=== PATIENT | female | born 1945 | race Caucasian/White ===

== ENCOUNTER 2016-07-10 12:59 | Observation (INO) | payer OTHER ==
[2016-07-10 13:07] VITALS: RESP 16
[2016-07-10 13:41] LABS: % IMMATURE GRANULYOCYTES 0.4 % (0.0-1.1); ABSOLUTE IMMATURE GRANULOCYTES 0.05 10^3/uL (0.00-0.10); ADD DIFF? NO; ADD MORPH? NO; ADD SCAN? NO; ATYPICAL LYMPHOCYTE FLAG 0 (0-99); FRAGMENT RBC FLAG 0 (0-99); HEMATOCRIT 44.9 % (38.0-47.0); HEMOGLOBIN 14.8 g/dL (12.6-16.3); LEFT SHIFT FLG 0 (0-99); LIPEMIA HEMOLYSIS FLAG 80 (0-99); MEAN CELL HEMOGLOBIN 28.9 pg (27.9-34.1); MEAN CELL VOLUME 87.7 fL (81.5-99.8); MEAN PLATELET VOLUME 9.1 fL (8.7-11.7); PLATELET CLUMPS FLAG 0 (0-99); PLATELET COUNT 344 10^3/uL (150-400); RED BLOOD CELL COUNT 5.12 10^6/uL (4.18-5.33); RED CELL DISTRIBUTION WIDTH 13.4 % (11.5-15.2)
[2016-07-10 13:51] LABS: ANION GAP 15 mEq/L (8-16); CALCIUM 9.8 mg/dL (8.5-10.4); CARBON DIOXIDE 22 mEq/l (22-31); CHLORIDE 102 mEq/L (97-110); CREATININE 0.7 mg/dL (0.6-1.0); GLOMERULAR FILTRATION RATE > 60; GLUCOSE 99 mg/dL (70-100); POTASSIUM 4.4 mEq/L (3.5-5.2); SODIUM 139 mEq/L (134-144)
[2016-07-10 14:55] LABS: INR 0.92 (0.83-1.16); PROTIME(PATIENT) 12.3 SEC (12.0-15.0)
[2016-07-10 14:56] LABS: APTT 24.5 SEC (23.0-38.0)
--- NOTE | 2016-07-10 15:20 | EDPHY ---
H & P Stated Complaint: R leg purple, Groin pain since this am. Source: Patient - Personal History Current Tetanus/Diphtheria Vaccine: Unsure Current Tetanus Diphtheria and Acellular Pertussis (TDAP): Unsure - Medical/Surgical History Hx Asthma: No Hx Chronic Respiratory Disease: No Hx Diabetes: No Hx Cardiac Disease: No Hx Renal Disease: No Hx Cirrhosis: No Hx Alcoholism: No Hx HIV/AIDS: No Hx Splenectomy or Spleen Trauma: No Other PMH: Ankle fracture,RLS hypothyroid. - Social History Smoking Status: Never smoked Time Seen by Provider: 07/10/16 13:16 HPI/ROS: This is a 71-year-old female presenting to the emergency department ambulatory with steady gait. Patient complaining of right groin pain radiating to her calf onset last night, denies any trauma. Patient denies any traveling long distance via airplane or car, normal activities per patient. Denies any chest pain or shortness of breath REVIEW OF SYSTEMS: Constitutional: No fever chills, fatigue this morning Respiratory: No cough Cardiac: No chest pain Gastrointestinal: No abdominal pain no nausea no vomiting Musculoskeletal: Right femoral pain, right calf pain Skin: No rash Neurological: No headache or dizziness (Marylu Bangura) - Physical Exam Exam: CONSTITUTIONAL: patient appeared well nourished, non-ill appearing and normally developed. No acute distress. Vital signs as documented. HEENT: NCAT. PERRLA. NECK: Supple, FROM without pain RESP: Non-labored resp effort, airway patent, CTAB CARDIAC: RRR w/o murmur, bo. GI: Abd soft NTTP NEURO: AAOx3 EXTREMITIES: Right groin area tender to palpate, right calf tender to palpate FROM without pain or difficulty. Positive strong femoral pulses/popliteal/ pedal pulses SKIN: Warm and dry, right lower extremity mottling but warm to touch PSYCH: Normal affect, calm, no distress (Marylu Bangura) Constitutional: Initial Vital Signs Temperature (C) 36.7 C 07/10/16 13:03 Heart Rate 92 07/10/16 13:03 Respiratory Rate 16 07/10/16 13:03 Blood Pressure 131/100 H 07/10/16 13:03 O2 Sat (%) 98 07/10/16 13:03 O2 Delivery Mode Room Air Allergies/Adverse Reactions: Sulfa (Sulfonamide Antibiotics) Allergy (Severe, Verified 07/10/16 13:07) Hives Home Medications: Medication Instructions Recorded Estradiol [Vivelle-Dot 0.0375MG 0.0375 mg TD TuFr@0800 07/10/16 (*)] Gabapentin [Neurontin 100 MG (*)] 500 mg PO HS 07/10/16 Herbals/Supplements -Info Only 1 ea PO HS 07/10/16 [id number] Cream (Compounded) 1 norma TP QID PRN 07/10/16 Lansoprazole [Lansoprazole 15 mg] 15 mg PO DAILY 07/10/16 Levothyroxine [Synthroid 75 mcg 75 mcg PO DAILY06 07/10/16 (*)] Progesterone, Micronized 100 mg PO HS 07/10/16 [Progesterone] traZODone [traZODONE 50MG (*)] 175 mg PO HS 07/10/16 Medical Decision Making - Diagnostics Imaging: History: Pain and swelling. *Right leg groin pain radiating down Findings: Ultrasound venous duplex and Doppler imaging of the common femoral vein, femoral vein, popliteal vein, calf veins, greater saphenous vein origin, and contralateral common femoral vein demonstrates positive occlusive intraluminal thrombus involving the right common iliac vein and common femoral vein. There is slow flow in the right superficial femoral vein, popliteal vein and calf veins with normal compressibility. Left common femoral vein appears patent. Impression: Positive deep venous thrombosis right leg involving the right common iliac vein and right common femoral vein. Findings and recommendations discussed with Emergency Department physician, Marylu Bangura NP at 14 :29 hour, 07/10/2016. Final report concurs with initial preliminary interpretation. Dictated By: Raymond Danielson (Marylu Bangura) ED Course/Re-evaluation: Discussed plan of care with patient: CBC, CMP, PT/PTT, ultrasound of right lower extremity positive for DVT at iliac vein and femoral vein. Patient admitted patient agreed with plan (Marylu Bangura) Other Provider: I did personally examine this patient. There is no discoloration or swelling of her thigh leg. She states that her pain has improved since she has had elevated. She has strong pulses and normal sensation. Considering the extension of her DVT I curb sided medicine who referred to up-to-date and recommends admission. Will start the patient on Lovenox. (Igor Wellington) - Data Points Laboratory Results: Laboratory Results 07/10/16 13:30 07/10/16 13:30 07/10/16 07/10/16 07/10/16 13:30 13:30 13:30 WBC 11.97 10^3/uL H 10^3/uL (3.80-9.50) RBC 5.12 10^6/uL 10^6/uL (4.18-5.33) Hgb 14.8 g/dL g/dL (12.6-16.3) Hct 44.9 % % (38.0-47.0) MCV 87.7 fL fL (81.5-99.8) MCH 28.9 pg pg (27.9-34.1) MCHC 33.0 g/dL g/dL (32.4-36.7) RDW 13.4 % % (11.5-15.2) Plt Count 344 10^3/uL 10^3/uL (150-400) MPV 9.1 fL fL (8.7-11.7) Neut % (Auto) 78.3 % H % (39.3-74.2) Lymph % (Auto) 14.6 % L % (15.0-45.0) [place] % (Auto) 5.3 % % (4.5-13.0) Eos % (Auto) 0.8 % % (0.6-7.6) Baso % (Auto) 0.6 % % (0.3-1.7) Nucleat RBC Rel Count 0.0 % % (0.0-0.2) Absolute Neuts (auto) 9.37 10^3/uL H 10^3/uL (1.70-6.50) Absolute Lymphs (auto) 1.75 10^3/uL 10^3/uL (1.00-3.00) Absolute Monos (auto) 0.64 10^3/uL 10^3/uL (0.30-0.80) Absolute Eos (auto) 0.09 10^3/uL 10^3/uL (0.03-0.40) Absolute Basos (auto) 0.07 10^3/uL 10^3/uL (0.02-0.10) Absolute Nucleated RBC 0.00 10^3/uL 10^3/uL (0-0.01) Immature Gran % 0.4 % % (0.0-1.1) Immature Gran # 0.05 10^3/uL 10^3/uL (0.00-0.10) PT 12.3 SEC SEC (12.0-15.0) INR 0.92 (0.83-1.16) APTT 24.5 SEC SEC (23.0-38.0) Sodium 139 mEq/L mEq/L (134-144) Potassium 4.4 mEq/L mEq/L (3.5-5.2) Chloride 102 mEq/L mEq/L (97-110) Carbon Dioxide 22 mEq/l mEq/l (22-31) Anion Gap 15 mEq/L mEq/L (8-16) BUN 10 mg/dL mg/dL (7-23) Creatinine 0.7 mg/dL mg/dL (0.6-1.0) Estimated GFR > 60 Glucose 99 mg/dL mg/dL (70-100) Calcium 9.8 mg/dL mg/dL (8.5-10.4) Medications Given: Discontinued Medications Enoxaparin Sodium (Lovenox) 60 mg SC ONCE ONE Stop: 07/10/16 16:01 Last Admin: 07/10/16 16:02 Dose: 60 mg Departure - Departure Disposition: [facility] Inpatient Acute Clinical Impression: DVT (deep venous thrombosis) Qualifiers: DVT location: lower extremity Affected thrombotic vein of extremity: iliac Laterality: right Chronicity: acute Qualified Code(s): I82.421 - Acute embolism and thrombosis of right iliac vein Condition: Good
[2016-07-10] MEDS ORDERED: ONDANSETRON 4 MG/2 ML VIAL IVP PRN (15:57)
[2016-07-10] MEDS ORDERED: HYDROCODONE/APAP 5/325 TAB PO PRN (15:57)
[2016-07-10] MEDS ORDERED: ONDANSETRON DISINTEGRATING 4 MG TAB PO PRN (15:57)
[2016-07-10] MEDS ORDERED: ACETAMINOPHEN 325 MG TAB PO PRN (15:57)
[2016-07-10] MEDS ORDERED: ENOXAPARIN 60 MG/0.6 ML SYR SC ONE (16:00)
--- NOTE | 2016-07-10 16:21 | GHP ---
[f rep st] HISTORY AND PHYSICAL DATE OF ADMISSION: 07/10/2016 CHIEF COMPLAINT: Right leg swelling. HISTORY OF PRESENT ILLNESS: This is a 71-year-old female with no significant past medical history w hira has had sudden onset of right groin pain and then right swelling with some discoloration of her l eg that she noticed today. She denies any chest pain or shortness of breath. She has never had any blood clots before. No recent travel. She did have an ankle injury about a year and half ago on t hat same side, and has had some problems with neuropathy and does use a mobilizer on that right ankl e at times. She is also on hormone replacement therapy which she has been on for a very long time. She says she gets regular mammograms and is up to date with her colonoscopies. She denies any weig ht loss or any other symptoms that would suggest malignancy. REVIEW OF SYSTEMS: A 10-point review of systems was obtained and, other than stated above, was nega tive. PAST MEDICAL HISTORY: Neuropathy, hypothyroidism. MEDICATIONS: Reviewed. 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 FAMILY HISTORY: No family history of blood clots. PHYSICAL EXAM: VITAL SIGNS: Afebrile, blood pressure 124/75, heart rate 89, oxygen saturation 98% on 2 liters. GENERAL: The patient is well-developed, no apparent distress. HEENT: Nonicteric scl erae. Extraocular movements intact. Moist mucous membranes. NECK: Supple. No thyromegaly. LUNG S: Good effort. Clear to auscultation bilaterally. CARDIOVASCULAR: Regular rate and rhythm. No murmurs, gallops. ABDOMEN: Positive bowel sounds. Soft, nontender, nondistended. No hepatospleno megaly. EXTREMITIES: Right leg with 2+ edema and some duskiness in the thigh area. NEUROLOGIC: A lert and oriented x3. Moving all 4 extremities equally. PSYCH: Normal affect. LABS: CBC is normal. Chemistries normal. Ultrasound of the leg shows extensive DVT in the common iliac and common femoral vein. ASSESSMENT: This is a 71-year-old female with new extensive deep venous thrombosis in the right leg . PLAN: Right lower extremity deep venous thrombosis. The patient had some significant swelling, alt arthur I do not think that it is severe enough that we would consider IR intervention. I think I wou ld like to give her another 24 hours on Lovenox and see where she is at tomorrow. As this is a fair ly extensive DVT, would like to have it be improved before discharge. She does want to try Xarelto which we can switch over to on discharge. She is weaning off her hormone replacement therapy which she can continue doing with her primary care physician. /[id number]/MODL
[2016-07-10] MEDS: ENOXAPARIN 60 MG/0.6 ML SYR SC SCH (20:17)
[2016-07-10] MEDS ORDERED: traZODone 50 MG TAB PO SCH (21:00)
[2016-07-10] MEDS ORDERED: GABAPENTIN 100 MG CAP PO SCH (21:00)
[2016-07-10] MEDS ORDERED: PROGESTERONE,MICR 100 MG CAP PO SCH (21:00)
[2016-07-11 05:18] LABS: % IMMATURE GRANULYOCYTES 0.5 % (0.0-1.1); ABSOLUTE IMMATURE GRANULOCYTES 0.05 10^3/uL (0.00-0.10); ADD DIFF? NO; ADD MORPH? NO; ADD SCAN? NO; ATYPICAL LYMPHOCYTE FLAG 0 (0-99); FRAGMENT RBC FLAG 0 (0-99); HEMOGLOBIN 12.6 g/dL (12.6-16.3); LEFT SHIFT FLG 0 (0-99); LIPEMIA HEMOLYSIS FLAG 80 (0-99); MEAN CELL HEMOGLOBIN 30.1 pg (27.9-34.1); MEAN CELL HEMOGLOBIN CONCENTR. 33.2 g/dL (32.4-36.7); MEAN CELL VOLUME 90.9 fL (81.5-99.8); MEAN PLATELET VOLUME 9.5 fL (8.7-11.7); PLATELET CLUMPS FLAG 0 (0-99); PLATELET COUNT 299 10^3/uL (150-400); RED BLOOD CELL COUNT 4.18 10^6/uL (4.18-5.33); RED CELL DISTRIBUTION WIDTH 13.5 % (11.5-15.2)
[2016-07-11 05:40] LABS: ALANINE AMINOTRANSFERASE 24 IU/L (9-52); ALBUMIN 3.4 g/dL (3.5-5.0); ALKALINE PHOSPHATASE 60 IU/L (38-126); ANION GAP 9 mEq/L (8-16); ASPARTATE AMINOTRANSFERASE 18 IU/L (14-46); BILIRUBIN,TOTAL 0.6 mg/dL (0.1-1.4); CALCIUM 8.7 mg/dL (8.5-10.4); CARBON DIOXIDE 26 mEq/l (22-31); CHLORIDE 106 mEq/L (97-110); CREATININE 0.7 mg/dL (0.6-1.0); GLOMERULAR FILTRATION RATE > 60; GLUCOSE 88 mg/dL (70-100); POTASSIUM 4.3 mEq/L (3.5-5.2); SODIUM 141 mEq/L (134-144); TOTAL PROTEIN 5.9 g/dL (6.3-8.2)
[2016-07-11] MEDS ORDERED: LEVOTHYROXINE 75 MCG TAB PO SCH (06:00)
[2016-07-11] MEDS ORDERED: PANTOPRAZOLE SODIUM 40 MG TAB PO SCH (09:00)
[2016-07-11] MEDS ORDERED: NON-FORMULARY NEW DRUG (Lansoprazole [Lansoprazole 15 Mg] 15 MG) PO SCH (09:00)
[2016-07-11] MEDS: ENOXAPARIN 60 MG/0.6 ML SYR SC SCH (09:28)
[2016-07-11 12:04] VITALS: BP 117/67; PULSE 88; TEMP 97.4; O2SAT 92
--- NOTE | 2016-07-11 12:37 | HOSPPROG ---
Hospitalist Progress Note Assessment/Plan: Patient is a 71-year-old female with no significant past medical history presented to the emergency room with right leg swelling. Today is my 1st encounter with the patient. Chart reviewed. * Extensive right DVT ultrasound notes dvt in iliac and common femoral vein on Lovenox hx of ankle fx that didnt' require surgery, on HRT she is calling her pharmacy to be sure Xarelto is covered swelling has much improved/ ambulating well without difficulty * hypothyroidism *Plan: dc later today Subjective: Lory is feeling well/ ambulating well, no shortness of breath, anxious to leave. Objective: Vital Signs Temp Pulse Resp BP Pulse Ox 36.3 C 88 16 117/67 92 07/11/16 12:04 07/11/16 12:04 07/11/16 12:04 07/11/16 12:04 07/11/16 12:04 Laboratory Results 07/11/16 04:13 07/11/16 04:13 07/10/16 07/11/16 07/12/16 05:59 05:59 05:59 Intake Total 400 Balance 400 PT 12.3 SEC (12.0-15.0) 07/10/16 13:30 INR 0.92 (0.83-1.16) 07/10/16 13:30 - Physical Exam Constitutional: no apparent distress Eyes: PERRL Ears, Nose, Mouth, Throat: moist mucous membranes, hearing normal Cardiovascular: regular rate and rhythym Respiratory: no respiratory distress Gastrointestinal: normoactive bowel sounds Skin: warm, other (right lower ext w swelling, good pulses, skin not tight) Musculoskeletal: full muscle strength Neurologic: AAOx3 Psychiatric: interacting appropriately, not anxious ICD10 Worksheet Patient Problems: Problems Problem Status Onset DVT (deep venous thrombosis) Acute
--- NOTE | 2016-07-11 14:43 | GDS ---
[f rep st] DISCHARGE SUMMARY DISCHARGE DIAGNOSES: 1. Extensive right deep vein thrombosis. 2. Hypothyroidism. BRIEF HISTORY: The patient is a very sweet 71-year-old female with no significant past medical history, who had sudden onset of right groin pain and then right swelling with some discoloration of her leg. She denied any chest pain or shortness of breath. She has had no recent travel. She did have an ankle injury about a year ago, but did not have any type of surgery done. She is also on hormone replacement therapy. She came to the emergency room and had an ultrasound done that showed extensive DVT in the common iliac and common femoral veins. Today, she is ambulating well, is anxious to be discharged home. She will further follow up with her primary care provider for further evaluation. HOSPITAL COURSE PER PROBLEM: 1. Extensive right deep vein thrombosis. She will be started on treatment with Xarelto. Further follow up with her PCP, recommending 3 months of treatment. 2. Hypothyroidism. Continue her Synthroid. PENDING LABS AND TESTS: None. CONDITION AT DISCHARGE: Stable. VITAL SIGNS: Blood pressure is 117/67, heart rate is 88, respiratory rate is 16, O2 sats on room air are 92%, temperature 36.3 Celsius. MEDICATIONS AT DISCHARGE: Please see the EMR. DISCHARGE INSTRUCTIONS: 1. To follow up with her primary care provider. Recommendation is 3 months of treatment. 2. Take it easy for the next several days and elevate her leg. 3. If she has any worsening swelling or pain in her right lower extremity, return to the ER. 4. Take Xarelto 15 mg b.i.d. x21 days, and then Xarelto 20 mg daily. >30 minutes discharging and coordinating care. Copy requested to: PCP /[id number]/MODL MTDD
[2016-07-11] MEDS ORDERED: RIVAROXABAN 15 MG TAB PO SCH (18:00)
[2016-07-13] MEDS ORDERED: ESTRADIOL VIVELLE 0.0375 MG PATCH TD SCH (08:00)
== END 2016-07-11 15:41 | disposition home or self-care (01) ==
LOC: F3N 16:11
PROVIDERS: ADMIT Internal Medicine; ATTEND Internal Medicine
DX: I82.421 Acute embolism and thrombosis of right iliac vein (principal); I82.411 Acute embolism and thrombosis of right femoral vein; E03.9 Hypothyroidism, unspecified; Z79.890 Hormone replacement therapy; Z88.2 Allergy status to sulfonamides
CPT/HCPCS: 93971; G0378; J1650

== ENCOUNTER 2017-01-04 16:05 | Emergency (ER) | payer OTHER ==
--- NOTE | 2017-01-04 16:44 | EDPHY ---
H & P Time Seen by Provider: 01/04/17 16:05 HPI/ROS: CHIEF COMPLAINT: Difficulty with memory HISTORY OF PRESENT ILLNESS: The patient had 2 episodes the 1st 1 about a week ago. She was sitting on the sofa he could not remember where brother was or where her was. Lasted about an hour and then resolved. Today she but the peppers in the oven around 12 30 and at 1:00 p.m. said she could not remember where she was or what she had done this morning. She eventually called her at 3:00 p.m. wondered what she had done this past morning and after he reoriented her she felt like she was better and now feels back to normal. Today's episode lasted a couple of hours. Not associated with headache or seizure activity or visual symptoms. No trouble with balance or speech or weakness or numbness in extremities. Symptoms were moderate are gone now. REVIEW OF SYSTEMS: Eye: no change in vision ENT: no sore throat Cardiac: no chest pain or syncope Pulmonary: no cough or SOB Abdomen: no vomiting, diarrhea, abdominal pain Musculoskeletal: no back pain Skin: no rash Neuro: no headache Constitutional: no fever : no urinary symptoms A comprehensive 10 point review of systems is otherwise negative aside from elements mentioned in the history of present illness. PAST MEDICAL HISTORY: DVT in right leg, right ankle dislocation 2 years ago, hypothyroid. Social history: , no alcohol General Appearance: Alert and conversant, cooperative. Eyes: No scleral icterus. ENT, Mouth: Normal mucous membranes. Respiratory: Normal respiratory effort, breath sounds equal, lungs are clear to auscultation. Cardiovascular: Regular rate and rhythm. Gastrointestinal: Abdomen is soft and non tender. Neurological: Alert and oriented x3. Normally conversant. Face symmetric, normal movement and sensation in all extremities. No pronator drift, finger-to- nose normal bilaterally, [id number] normal bilaterally. Skin: Warm and dry, no rashes. Musculoskeletal: No peripheral edema and no joint swelling. Psychiatric: Not agitated. Emergency Department course/MDM: History and physical and discharge summary from July 2016 personally reviewed. Differential includes but not limited to TIA, transient global amnesia, metabolic, Alzheimer's. Plan for CT and CT angiography, metabolic, EKG and phone consultation with Neurology. 1711: Normal creatinine, CT and CT angio ordered. 1836: Normal CT and CT angio per Dr. Reid. 1843: Discussed with Javier Redman. 1850: Results discussed with the patient including Neurology recommendation to discharge her home, continue oral aspirin, office follow-up this week. Smoking Status: Never smoked Constitutional: Initial Vital Signs Temperature (C) 36.5 C 01/04/17 16:08 Heart Rate 73 01/04/17 16:08 Respiratory Rate 18 01/04/17 16:08 Blood Pressure 135/78 H 01/04/17 16:08 O2 Sat (%) 95 01/04/17 16:08 O2 Delivery Mode Room Air Allergies/Adverse Reactions: Sulfa (Sulfonamide Antibiotics) Allergy (Severe, Verified 07/10/16 13:07) Hives Home Medications: Medication Instructions Recorded Estradiol [Vivelle-Dot 0.0375MG 0.0375 mg TD TuFr@0800 07/10/16 (*)] Gabapentin [Neurontin 100 MG (*)] 500 mg PO HS 07/10/16 Herbals/Supplements -Info Only 1 ea PO HS 07/10/16 Plp7hng Cream (Compounded) 1 norma TP QID PRN 07/10/16 Lansoprazole [Lansoprazole 15 mg] 15 mg PO DAILY 07/10/16 Levothyroxine [Synthroid 75 mcg 75 mcg PO DAILY06 07/10/16 (*)] Progesterone, Micronized 100 mg PO HS 07/10/16 [Progesterone] traZODone [traZODONE 50MG (*)] 175 mg PO HS 07/10/16 Acetaminophen [Tylenol 325mg (*)] 650 mg PO Q4HRS PRN #0 tab 07/11/16 Aspirin 81mg (*) 01/04/17 Medical Decision Making - Diagnostics EKG Interpretation: 12-lead EKG interpreted by me; official reading is in trace master. My interpretation is sinus rhythm rate 77 no ischemic changes. No AFib. Imaging Results: Imaging Impressions Head CT 01/04/17 17:10 Impression: 1. No acute intracranial findings. 2. Diffuse cerebral atrophy with periventricular and subcortical low attenuation consistent with chronic microvascular ischemic gliosis. Head CTA 01/04/17 17:10 Impression: 1. No acute vascular findings. If symptoms persist and clinical suspicion warrants, consider MRI. 2. Degenerative change in the cervical spine. 3. Additional findings, as above. Stenoses are calculated using [place] Symptomatic Carotid Endarterectomy Trial (NASCET) criteria. Findings discussed with Fantasma Moreira M.D., on January 04, 2017 at 1834. Neck CTA 01/04/17 17:10 Impression: 1. No acute vascular findings. If symptoms persist and clinical suspicion warrants, consider MRI. 2. Degenerative change in the cervical spine. 3. Additional findings, as above. Stenoses are calculated using [place] Symptomatic Carotid Endarterectomy Trial (NASCET) criteria. Findings discussed with Fantasma Moreira M.D., on January 04, 2017 at 1834. - Data Points Laboratory Results: Laboratory Results 01/04/17 16:40 01/04/17 16:40 01/04/17 01/04/17 01/04/17 16:40 16:40 16:36 WBC 8.71 10^3/uL 10^3/uL (3.80-9.50) RBC 4.38 10^6/uL 10^6/uL (4.18-5.33) Hgb 13.1 g/dL g/dL (12.6-16.3) POC Hgb 14.3 gm/dL gm/dL (12.6-16.3) Hct 40.2 % % (38.0-47.0) POC Hct 42 % % (38-47) MCV 91.8 fL fL (81.5-99.8) MCH 29.9 pg pg (27.9-34.1) MCHC 32.6 g/dL g/dL (32.4-36.7) RDW 12.9 % % (11.5-15.2) Plt Count 421 10^3/uL H 10^3/uL (150-400) MPV 9.0 fL fL (8.7-11.7) Neut % (Auto) 70.1 % % (39.3-74.2) Lymph % (Auto) 20.9 % % (15.0-45.0) [place] % (Auto) 6.8 % % (4.5-13.0) Eos % (Auto) 1.3 % % (0.6-7.6) Baso % (Auto) 0.7 % % (0.3-1.7) Nucleat RBC Rel Count 0.0 % % (0.0-0.2) Absolute Neuts (auto) 6.11 10^3/uL 10^3/uL (1.70-6.50) Absolute Lymphs (auto) 1.82 10^3/uL 10^3/uL (1.00-3.00) Absolute Monos (auto) 0.59 10^3/uL 10^3/uL (0.30-0.80) Absolute Eos (auto) 0.11 10^3/uL 10^3/uL (0.03-0.40) Absolute Basos (auto) 0.06 10^3/uL 10^3/uL (0.02-0.10) Absolute Nucleated RBC 0.00 10^3/uL 10^3/uL (0-0.01) Immature Gran % 0.2 % % (0.0-1.1) Immature Gran # 0.02 10^3/uL 10^3/uL (0.00-0.10) POC Sodium 141 mEq/L mEq/L (134-144) Sodium 139 mEq/L mEq/L (134-144) POC Potassium 3.7 mEq/L mEq/L (3.3-5.0) Potassium 4.0 mEq/L mEq/L (3.5-5.2) POC Chloride 102 mEq/L mEq/L (97-110) Chloride 101 mEq/L mEq/L (97-110) Carbon Dioxide 25 mEq/l mEq/l (22-31) Anion Gap 13 mEq/L mEq/L (8-16) POC BUN 11 mg/dL mg/dL (7-23) BUN 12 mg/dL mg/dL (7-23) Creatinine 0.8 mg/dL mg/dL (0.6-1.0) POC Creatinine 0.8 mg/dL mg/dL (0.6-1.0) Estimated GFR > 60 Glucose 122 mg/dL H mg/dL (70-100) POC Glucose 126 mg/dL H mg/dL (70-100) Calcium 9.5 mg/dL mg/dL (8.5-10.4) Point of Care Test Results: 01/04/17 16:36 POC Sodium 141 POC Potassium 3.7 POC Chloride 102 POC BUN 11 POC Creatinine 0.8 POC Glucose 126 H Departure - Departure Disposition: Home, Routine, Self-Care Clinical Impression: Transient memory loss Condition: Good Instructions: Aspirin (By mouth) Additional Instructions: Continue to take a baby aspirin every day orally. Please call Dr. Redman from Neurology as he wants to see you in the office for follow-up later this week. Referrals: Gris Aguilera MD [Primary Care Provider] - As per Instructions Javier eRdman MD [Medical Doctor] - As per Instructions
[2017-01-04 16:45] LABS: % IMMATURE GRANULYOCYTES 0.2 % (0.0-1.1); ABSOLUTE IMMATURE GRANULOCYTES 0.02 10^3/uL (0.00-0.10); ADD DIFF? NO; ADD MORPH? NO; ADD SCAN? NO; ATYPICAL LYMPHOCYTE FLAG 0 (0-99); FRAGMENT RBC FLAG 0 (0-99); HEMATOCRIT 40.2 % (38.0-47.0); HEMOGLOBIN 13.1 g/dL (12.6-16.3); LEFT SHIFT FLG 0 (0-99); LIPEMIA HEMOLYSIS FLAG 80 (0-99); MEAN CELL HEMOGLOBIN 29.9 pg (27.9-34.1); MEAN CELL HEMOGLOBIN CONCENTR. 32.6 g/dL (32.4-36.7); MEAN CELL VOLUME 91.8 fL (81.5-99.8); PLATELET CLUMPS FLAG 0 (0-99); PLATELET COUNT 421 10^3/uL (150-400); RED BLOOD CELL COUNT 4.38 10^6/uL (4.18-5.33); RED CELL DISTRIBUTION WIDTH 12.9 % (11.5-15.2)
--- NOTE | 2017-01-04 16:50 | CPEKG ---
Heart Rate: 77 RR Interval: 779 P-R Interval: 156 QRSD Interval: 72 QT Interval: 384 QTC Interval: 435 P [place]: 30 QRS [place]: 16 T Wave [place]: 13 EKG Severity - NORMAL ECG - EKG Impression: SINUS RHYTHM Electronically Signed By: Fantasma Moreira 04-Jan-2017 17:12:00
[2017-01-04 17:00] LABS: ANION GAP 13 mEq/L (8-16); CALCIUM 9.5 mg/dL (8.5-10.4); CARBON DIOXIDE 25 mEq/l (22-31); CHLORIDE 101 mEq/L (97-110); CREATININE 0.8 mg/dL (0.6-1.0); GLOMERULAR FILTRATION RATE > 60; GLUCOSE 122 mg/dL (70-100); SODIUM 139 mEq/L (134-144)
[2017-01-04] MEDS ORDERED: IOPAMIDOL (ISOVUE 370) 100 ML BTL IV ONE (17:36)
[2017-01-04 18:16] VITALS: RESP 16
[2017-01-04 18:58] VITALS: BP 134/72; PULSE 72; TEMP 98.6; O2SAT 98
== END 2017-01-04 19:04 | disposition home or self-care (01) ==
DX: G45.4 Transient global amnesia (principal); Z79.82 Long term (current) use of aspirin
CPT/HCPCS: 70450; 70496; 70498; 93005; 99285; Q9967; 82947-QW

== ENCOUNTER 2018-08-14 18:19 | Inpatient (IN) | payer OTHER ==
[2018-08-14] MEDS ORDERED: LORazepam 2 MG/ML INJ ONE (18:28)
--- NOTE | 2018-08-14 18:43 | EDPHY ---
H & P Stated Complaint: fta Time Seen by Provider: 08/14/18 18:34 HPI/ROS: CHIEF COMPLAINT: Unresponsive, full trauma team activation Limitations: Patient unable to provide any clinical history HISTORY OF PRESENT ILLNESS: 73-year-old female with Alzheimer's presents with as a full trauma team activation with unresponsiveness. Her found her at the bottom of flight of stairs just prior to arrival. She was unresponsive, so he called 911. On EMS arrival, she was minimally responsive. Blood sugar was adequate. She is unable to answer questions, but is alert now. She had a large alcoholic beverage sometime this afternoon/gonsalo. REVIEW OF SYSTEMS: Unable to obtain - Medical/Surgical History Hx Asthma: No Hx Chronic Respiratory Disease: No Hx Diabetes: No Hx Cardiac Disease: No Hx Renal Disease: No Hx Cirrhosis: No Hx Alcoholism: No Hx HIV/AIDS: No Hx Splenectomy or Spleen Trauma: No Other PMH: Ankle fracture,RLS, hypothyroid. - Social History Smoking Status: Never smoked Drug Use: None Additional Social History: - Physical Exam Exam: General Appearance: Alert, agitated, moving all around, tells me her name Head: Abrasion on forehead Eyes: No conjunctival erythema, PERRLA, EOMI ENT, Mouth: No hemotympanum on right, left TM occluded by wax, no oral trauma, no apparent bony tenderness Neck: In C-spine collar Respiratory: No chest wall tenderness, lungs clear bilaterally anteriorly Cardiovascular: Regular rate and rhythm Abdomen: Abdomen is soft and nontender Skin: No lacerations Back: Normal inspection, No midline T/L/S tenderness Extremities: Pelvis is stable and nontender; no extremity deformity, moving all extremities equally, without apparent pain Neurological: Alert, looks at me when I speak, tells me her name, does not follow commands, moves all extremities, strong throughout Psychiatric: Agitated Constitutional: Initial Vital Signs Temperature (C) 35.9 C L 08/14/18 18:26 Heart Rate 69 08/14/18 18:26 Respiratory Rate 26 H 08/14/18 18:26 Blood Pressure 104/68 08/14/18 18:26 O2 Sat (%) 95 08/14/18 18:26 O2 Delivery Mode Nasal Cannula O2 (L/minute) 3 Allergies/Adverse Reactions: Sulfa (Sulfonamide Antibiotics) Allergy (Severe, Verified 04/01/17 13:07) Hives Home Medications: Medication Instructions Recorded NK [No Known Home Meds] 08/14/18 Medical Decision Making - Diagnostics Imaging Results: Imaging Impressions Chest X-Ray 08/14/18 18:24 Impression: Negative portable chest. Head CT 08/14/18 18:24 Impression: 1. Skull base fracture originating in the right occipital region and extending to the sphenoid sinuses, with associated air seen in the cavernous sinuses, right carotid canal, and the sella. 2. Petechial-type hemorrhage seen involving left frontal and anterior left temporal regions, with minimal right frontal hemorrhage. 3. No significant extraaxial hemorrhage is identified. CT Cervical Spine (Without Contrast) History: Trauma. Technique: Multislice helical CT through the cervical spine without contrast from the skull base to T1. Soft tissue and bone evaluation is performed. Sagittal and coronal reconstructions are obtained and reviewed. Dose reduction techniques were utilized. Findings: A fracture is not identified. There is a very minimal anterolisthesis of C4 with respect to C5 presumably on the basis of degenerative change. Otherwise, the bone alignment is normal. Prevertebral soft tissues appear normal. Multilevel degenerative changes are noted, with disk space loss and bony hypertrophic changes extending from C3-C4 to the C7-T1 level. Impression: 1. Cervical spine negative for fracture. 2. Multilevel degenerative changes are noted, as detailed above. The findings were reviewed with Dr. Nuno Zambrano, the trauma surgeon. Cervical Spine CT 08/14/18 18:25 Impression: 1. Skull base fracture originating in the right occipital region and extending to the sphenoid sinuses, with associated air seen in the cavernous sinuses, right carotid canal, and the sella. 2. Petechial-type hemorrhage seen involving left frontal and anterior left temporal regions, with minimal right frontal hemorrhage. 3. No significant extraaxial hemorrhage is identified. CT Cervical Spine (Without Contrast) History: Trauma. Technique: Multislice helical CT through the cervical spine without contrast from the skull base to T1. Soft tissue and bone evaluation is performed. Sagittal and coronal reconstructions are obtained and reviewed. Dose reduction techniques were utilized. Findings: A fracture is not identified. There is a very minimal anterolisthesis of C4 with respect to C5 presumably on the basis of degenerative change. Otherwise, the bone alignment is normal. Prevertebral soft tissues appear normal. Multilevel degenerative changes are noted, with disk space loss and bony hypertrophic changes extending from C3-C4 to the C7-T1 level. Impression: 1. Cervical spine negative for fracture. 2. Multilevel degenerative changes are noted, as detailed above. The findings were reviewed with Dr. Nuno Zambrano, the trauma surgeon. CT scan of the brain read by the radiologist reveals a skull fracture and intraparenchymal hemorrhage. CT scan of the cervical spine reveals no acute fracture. Imaging: I viewed and interpreted images myself Procedures: Procedure: Trauma ultrasound. Limited echocardiogram for pericardial effusion. Limited bedside ultrasound was performed and interpreted by myself for the indication of: chest trauma utilizing the thoracoabdominal emergency ultrasound protocol. Limited transthoracic echocardiogram: The pericardium was visualized and found to be negative for pericardial fluid. The study was negative for pericardial effusion. Limited abdominal ultrasound for blunt abdominal trauma. 1) The right upper quadrant was visualized and was found to be negative for intraperitoneal fluid. 2) The left upper quadrant was visualized and found to be negative for intraperitoneal fluid. The study was felt to be negative for free intraperitoneal fluid. Limited pelvic ultrasound was conducted for abdominal trauma. The bladder was visualized and did not reveal an anechoic area outside of the adjacent urinary bladder. Bladder was distended with urine. ED Course/Re-evaluation: This patient presents with altered mental status after an apparent fall down the stairs. She is maintaining her airway adequately and has equal breath sounds bilaterally. Stat chest x-ray is unremarkable. Fast exam performed by me is unremarkable, though technically difficult because of motion. She was sent to CT scan accompanied by the ED RN. Discussion with the patient's , pt had a large alcoholic beverage this evening. d/w Dr. Zambrano, will obtain CT head/Cspine. CT reveals ICH/skull fx. Dr. Rios consulted (by Dr. Zambrano) and saw pt in ED. Pt given Ativan prior to CT scan, remains drowsy. Will admit to ICU. Pt stable throughout her ED stay. Maintained Cspine collar throughout. I spent a total of 35 minutes of critical care time in obtaining history, performing a physical exam, bedside monitoring of interventions, collecting and interpreting tests and discussion with consultants but not including time spent performing procedures. Organ at risk: brain Differential Diagnosis: Differential diagnosis includes though it is not limited to fracture, intracranial hemorrhage, pneumothorax, hemothorax, intra-abdominal hemorrhage. - Data Points Laboratory Results: Laboratory Results 08/14/18 18:41 08/14/18 18:56 08/14/18 08/14/18 08/14/18 18:56 18:56 18:41 WBC 11.39 10^3/uL H 10^3/uL (3.80-9.50) RBC 4.31 10^6/uL 10^6/uL (4.18-5.33) Hgb 13.3 g/dL g/dL (12.6-16.3) Hct 39.6 % % (38.0-47.0) MCV 91.9 fL fL (81.5-99.8) MCH 30.9 pg pg (27.9-34.1) MCHC 33.6 g/dL g/dL (32.4-36.7) RDW 13.0 % % (11.5-15.2) Plt Count 375 10^3/uL 10^3/uL (150-400) MPV 8.9 fL fL (8.7-11.7) Neut % (Auto) 70.3 % % (39.3-74.2) Lymph % (Auto) 20.8 % % (15.0-45.0) [place] % (Auto) 5.4 % % (4.5-13.0) Eos % (Auto) 1.7 % % (0.6-7.6) Baso % (Auto) 0.7 % % (0.3-1.7) Nucleat RBC Rel Count 0.0 % % (0.0-0.2) Absolute Neuts (auto) 8.01 10^3/uL H 10^3/uL (1.70-6.50) Absolute Lymphs (auto) 2.37 10^3/uL 10^3/uL (1.00-3.00) Absolute Monos (auto) 0.62 10^3/uL 10^3/uL (0.30-0.80) Absolute Eos (auto) 0.19 10^3/uL 10^3/uL (0.03-0.40) Absolute Basos (auto) 0.08 10^3/uL 10^3/uL (0.02-0.10) Absolute Nucleated RBC 0.00 10^3/uL 10^3/uL (0-0.01) Immature Gran % 1.1 % % (0.0-1.1) Immature Gran # 0.12 10^3/uL H 10^3/uL (0.00-0.10) Sodium 136 mEq/L mEq/L (135-145) Potassium 4.0 mEq/L mEq/L (3.5-5.2) Chloride 100 mEq/L mEq/L (97-110) Carbon Dioxide 23 mEq/l mEq/l (22-31) Anion Gap 13 mEq/L mEq/L (6-14) BUN 11 mg/dL mg/dL (7-23) Creatinine 0.8 mg/dL mg/dL (0.6-1.0) Estimated GFR > 60 Glucose 89 mg/dL mg/dL (70-100) Calcium 9.1 mg/dL mg/dL (8.5-10.4) Total Bilirubin 0.4 mg/dL mg/dL (0.1-1.4) Conjugated Bilirubin 0.2 mg/dL mg/dL (0.0-0.5) Unconjugated Bilirubin 0.2 mg/dL mg/dL (0.0-1.1) AST 32 IU/L IU/L (14-46) ALT 32 IU/L IU/L (9-52) Alkaline Phosphatase 63 IU/L IU/L (38-126) Total Protein 6.2 g/dL L g/dL (6.3-8.2) Albumin 3.9 g/dL g/dL (3.5-5.0) Ethyl Alcohol 193 mg/dL H mg/dL (0-10) Medications Given: Sodium Chloride (Ns) 1,000 mls @ 75 mls/hr IV CONT SHANE Stop: 02/10/19 19:44 Last Admin: 08/14/18 20:55 Dose: 1,000 mls Discontinued Medications Levetiracetam (Keppra (Premix)) 100 mls @ 400 mls/hr IV ONCE ONE Stop: 08/14/18 20:43 Last Admin: 08/14/18 20:55 Dose: 100 mls Lorazepam (Ativan Injection) 0.5 mg IVP EDNOW ONE Stop: 08/14/18 19:00 Last Admin: 08/14/18 18:32 Dose: 0.5 mg Lorazepam (Ativan Injection) 0.5 mg IVP EDNOW ONE Stop: 08/14/18 19:00 Last Admin: 08/14/18 18:38 Dose: 0.5 mg Departure - Departure Disposition: [facility] Acute Clinical Impression: Intraparenchymal hemorrhage of brain Skull fracture Qualifiers: Encounter type: initial encounter Skull bone/location: occipital bone Fracture type: closed Occipital fracture type: unspecified fracture of occiput Laterality : unspecified laterality Qualified Code(s): S02.119A - Unspecified fracture of occiput, initial encounter for closed fracture Condition: Critical
[2018-08-14] MEDS ORDERED: LORazepam 2 MG/ML INJ IVP ONE ×2 (18:59)
[2018-08-14 19:15] LABS: PLATELET COUNT 375 10^3/uL (150-400)
[2018-08-14] MEDS ORDERED: ONDANSETRON 4 MG/2 ML VIAL IVP PRN (19:39)
[2018-08-14] MEDS ORDERED: ACETAMINOPHEN 325 MG TAB PO PRN (19:39)
[2018-08-14] MEDS ORDERED: NALOXONE HCL 0.4 MG/ML INJ IVP PRN (19:39)
[2018-08-14] MEDS ORDERED: ACETAMINOPHEN 650 MG SUPP PR PRN (20:28)
[2018-08-14] MEDS ORDERED: levETIRAcetam 1000MG/NACL 100 ML IV ONE (20:29)
[2018-08-14] MEDS: NS 1,000 ML IV SCH (20:55)
--- NOTE | 2018-08-14 21:18 | GCON ---
[f rep st] CONSULTATION REASON FOR ADMISSION: Full trauma activation. HISTORY OF PRESENT ILLNESS: 73-year-old female with a significant history for early-onset Alzheimer's type dementia, who sustained a fall down 2 flights of stairs while at home. Per her , she did consume a large Tequila beverage after dinner this evening. The patient was found unresponsive by EMS. She was brought to the emergency room with cervical spine precautions. The patient became more responsive upon ED arrival, however, not alert to name or place. She was without specific complaint other than and generalized moaning. PAST MEDICAL HISTORY: Dementia. PAST SURGICAL HISTORY: None. MEDICATIONS: Unclear. ALLERGIES: No known drug allergies. SOCIAL: Moderate alcohol. No tobacco. She is to [place]. REVIEW OF SYSTEMS: Nonfocal per discussion with . PHYSICAL EXAMINATION: VITAL SIGNS: Temperature 35.9, blood pressure 104/68, pulse 69, respirations 26, 95% saturation on 2 L. Primary survey: ABC intact. Secondary survey: Pupils appear injected. Otherwise, pupils are equally round, reactive to light and accommodation. Extraocular muscles intact. No mid face instability. Scalp with a small superficial punctate abrasion. No hematoma. NECK: Field collar in place. Trachea midline without crepitus. Posterior cervical spine nontender. HEART: Regular, without murmurs. LUNGS: Clear bilaterally. ABDOMEN: Soft, nontender , nondistended. FAST exam by emergency room physician unremarkable. PELVIS: Nontender. EXTREMITIES: Normal bilateral upper and lower extremities, 2+ radial and pedal pulses. Chronic right lateral malleolar eczema without evidence of fracture or abrasion. MUSCULOSKELETAL: Thoracic and lumbar spines nontender. SKIN: Notable for ankle eczema only. NEUROLOGIC: The patient is not alert to name or place. She is moving all extremities well. She has no focal neurologic deficits. LABORATORY DATA: White count 11, hemoglobin 13 platelets of 375. Electrolytes within reference range. Alcohol 193. Chest x-ray without pneumothorax, mediastinal widening, or obvious fracture. CT head and neck with a long occipital fracture extending into the skull base, with contrecoup intraparenchymal blood within the temporal and frontal regions. No mass effect. No midline shift. Notable pneumocephalus extending into the sphenoid sinus as well as bilateral cavernous sinuses. IMPRESSION: 73-year-old female with significant history for Alzheimer's dementia, status post fall 2 flights of stairs with right occipital skull fracture, as well as intraparenchymal hemorrhages. PLAN: The patient is being admitted to the intensive care unit for further observation. Case was discussed with Dr. Rios from Neurosurgical Service., who will see the patient later this evening. [place] J collar will be placed until a clinical neck exam can be completed. The patient will be seen by Physical, Occupational, and Speech Therapies. Repeat imaging will be obtained tomorrow morning. Findings, recommendations, and care plan were discussed with the patient's at bedside, as well as with the Neurosurgical Service benefits consultant, and emergency room physician benefits consultant. /[id number]/MODL MTDD
--- NOTE | 2018-08-14 22:25 | NEUSURGPN ---
Assessment/Plan: I reviewed the repeat Head CT with Dr. Love at 22:22. The report is not ready but the CT was reviewed and shows some evolving areas of TSAH but overall is stable in appearance. She is scheduled for a repeat Head CT in the am as well. Please call with any changes in her neuro exam. Sammi Gage PA-C [facility] [phone] - Physician Discussed Patient with : [facility] Physical Exam - Vitals, I&O, Labs I and O 08/13/18 08/14/18 08/15/18 05:59 05:59 05:59 Intake Total 0 Output Total 0 Balance 0 Weight 49 kg Intake: IV Infused (ml) 0 Output: Urine (ml) 0 Vital Signs Temp Pulse Resp BP Pulse Ox 36.3 C 70 11 L 112/62 98 08/14/18 20:21 08/14/18 22:00 08/14/18 22:00 08/14/18 22:00 08/14/18 22:00 ICD10 Worksheet Patient Problems: Problems Problem Status Onset Intraparenchymal hemorrhage of brain Acute Skull fracture Acute DVT (deep venous thrombosis) Acute
--- NOTE | 2018-08-15 00:24 | GCON ---
[f rep st] CONSULTATION NEUROSURGICAL CONSULTATION DATE OF CONSULTATION: 08/14/2018 LOCATION: Trauma [place] [facility] at [facility] Emergency Department. REASON FOR CONSULTATION: Full trauma activation, head injury. HISTORY OF PRESENT ILLNESS: The patient is a 73-year-old, who lives with her , who has at [employer] a 1-year history of dementia, and it is unclear what type. was concerned if it might be A lzheimer-type dementia, and they had only seen a neurologist once. The neurologist brought up the po ssibility of dementia, and then they never returned because the patient did not want to entertain scott t possibility. She was drinking a large amount of alcohol tonight, and she was found at the bottom o f a flight of stairs by her . She was unresponsive and he called 911. She was minimally resp onsive in the emergency department, but she appeared agitated. Then they gave her some Ativan and di d a CT scan that demonstrated a right basal skull fracture through the occipital bone, as well as in the right skull base itself, going up in the region of the cavernous sinus and into the sphenoid sinu ses with a trace amount of pneumocephalus and punctate areas of traumatic subarachnoid hemorrhage sca ttered throughout the bifrontal regions and bitemporal regions of the brain. The did not norma arently hear her fall and simply found her at the bottom of a flight of stairs. He did note that she drank a very large quantity of alcohol tonight. PAST MEDICAL HISTORY: Significant for an ankle fracture, RLS, hypothyroidism, and uncharacterized de mentia. SOCIAL HISTORY: She does drink alcohol. She is . Her was present in the emergency d epartment and her daughter arrived, and they had another daughter on the phone. She has never smoked . PHYSICAL EXAM: VITAL SIGNS: Blood pressure 113/63, MAP 79. Respiratory rate 24. Heart rate 70. 1 00% saturation on 3 L nasal cannula. Temperature 36.3. NEUROLOGIC: Her eyes were closed on exam. Her pupils were equal, round, and reactive to light. She grimaced when I addressed her. She did loc carie well on the left and a little less briskly localized on the right, but she did localize on both sides. She did not say any words to me and really did not open her eyes even to stim despite the gr imacing. When she arrived in the emergency department, she did have her eyes open. She was looking at the ER doctor and told the ER doctor her name but did not follow commands. They found her to be a gitated. Her skull was examined. She had no evidence of skull laceration. It was nontraumatic. IMAGING: CT scan demonstrated right occipital linear nondisplaced skull fracture that did appear to travel through the base of the skull anteriorly through the region of the right cavernous sinus in th e area of the foramen lacerum with a punctate amount of air where the carotid itself pierced the skul l base, extending into the paranasal sinuses and possibly even the sphenoid sinus itself. The brain had diffuse scattered areas of traumatic subarachnoid hemorrhage, mostly in the left sylvian fissure and left frontal pole. There were also punctate areas in the right frontal pole. ASSESSMENT: The patient is a 73-year-old who fell down the stairs and [facility] as a formal trauma activation. The CT head was done at 6:38 p.m. Neurosurgery was cons ulted at 7:17 p.m. The phone call to Neurosurgery lasted 3 minutes, after which time I pulled up her scan. I came immediately to the emergency department because she was a full trauma. Neurosurgery a gain was notified at 7:17 p.m., and we were in the emergency department at 7:39 p.m. evaluating the p atient. She has a nonoperative head injury, and her current Stroud coma score when evaluated by the neurosurgeon was likely compromised by the Ativan in that she had a lower score when evaluated by Ne urosurgery than when seen by the emergency department physician. She did localize on both sides, and there is no reason to consider an external ventricular drain, but because her Stroud coma score is less than 13, she will be placed on Keppra prophylaxis. She also takes a baby aspirin a day, and for these reasons, we will get an early repeat scan at 9:30 tonight at approximately 3 hours after arriv al. I had a long discussion with the patient's about her dementia and the possible treatment s in the unlikely event that she deteriorated. I did not expect her to deteriorate on the basis of h er original scan, but I did explain to him the nature of deterioration in injuries like this, and if the hematoma were to enlarge, he should consider whether or not he wants Neurosurgery to actually do surgery in this case. He and his daughter will think about this, but we did talk about dementia in t he context of head injury in a patient like this who is already suffering from dementia. No level of care decision, however, was made and I did not require one. I thought it was just reasonable to jennifer ng up this topic. Repeat scan will be done later tonight. She will be placed in ICU on Keppra, and we will get another scan in the morning. We will continue to follow her progress. /[id number]/MODL
--- NOTE | 2018-08-15 07:35 | SOAPPROG ---
[facility] Progress Note Assessment/Plan: Assessment: 1)Pre-existing dementia not characterized. It is tempting to have neurology weigh in on this while she remains an inpatient but im not sure their clinical impression will be all that useful in the context of her mild head injury. 2)Mild head injury superimposed. I do not know what impact this will have on her. we will await speech pt ot. they will help us plan the next move whether it be return to home or a short stay in rehab this will depend on their assessment. 3) C collar was removed by the neurosurgery staff this morning. she had no neck pain and ct was negative 4) Discharge planning 5) Ok to leave the ICU to a regular floor 6) Right Skull base fx through the carotid region. No need for further imaging. We will restart daily aspirin therapy in 2 days. 7) Previous aspirin therapy. See 6 above. 8) Bilateral subdural hygromas are secondary to brain atrophy and cerebral volume loss. These cannot be treated, but they likely increase the probability of her developing post traumatic chronic SDH. We will get a new CT head in 3 weeks to re evaluate. Plan: 08/15/18 07:36 08/15/18 07:37 Subjective: Seemed to wake up overnight after the ativan wore off Objective: Vital Signs Temp Pulse Resp BP Pulse Ox 36.5 C 74 15 107/61 93 08/15/18 06:00 08/15/18 06:00 08/15/18 06:00 08/15/18 06:00 08/15/18 06:00 Laboratory Results 08/15/18 04:15 08/14/18 08/15/18 08/16/18 05:59 05:59 05:59 Intake Total 567 Output Total 550 Balance 17 PT REJ 08/15/18 04:15 INR REJ 08/15/18 04:15 Eyes are open, reactive Motor: FC Bilaterall V: speech production is sparse but she knows her name ct head: normal evolution of traumatic SAH. ICD10 Worksheet Patient Problems: Problems Problem Status Onset Intraparenchymal hemorrhage of brain Acute Skull fracture Acute DVT (deep venous thrombosis) Acute
--- NOTE | 2018-08-15 08:49 | PDMN ---
Medical Necessity Medical necessity: [facility] M78 Traumatic Brain Injury, Nonsurgical Treatment, A-2 days: 73 yo w/ R occipital skull fx and intraparenchymal hemorrhages s/p fall down 2 flights of stairs. Full trauma, trauma and neurosurg consults. [place] coma score <13 on presentation per Neurosurg meeting [facility] IP criteria for M78. Admit IP status ICU. Hx Alzheimer's dementia
[2018-08-15] MEDS ORDERED: THIAMINE HCL 100 MG TAB PO SCH ×2 (09:00→12:00)
[2018-08-15] MEDS: levETIRAcetam 500MG/NACL 100 ML IV SCH ×2 (09:07→21:26)
--- NOTE | 2018-08-15 09:53 | TRAUMAPNT ---
Trauma Tertiary Progress Note New Findings: No new findings Assessment/Plan: PAD#1 08/15/2018 Assessment: No complaints except with right posterior/basilar/lateral skull palpation. Neurologic baseline (dementia) unclear but no focal findings this AM. Findings of air in Right carotid syphon confirmed with radiology. Plan: CTA neck/brain to evaluate right carotid syphon for injury. Roll belt due to impulsivity Subjective: No complaints Objective: Vital Signs Temp Pulse Resp BP Pulse Ox 36.4 C 80 22 H 116/51 L 96 08/15/18 08:00 08/15/18 09:00 08/15/18 09:00 08/15/18 09:00 08/15/18 09:00 Laboratory Results 08/15/18 04:15 08/14/18 08/15/18 08/16/18 05:59 05:59 05:59 Intake Total 567 Output Total 550 Balance 17 PT REJ 08/15/18 04:15 INR REJ 08/15/18 04:15 - C-Spine Clearance Cervical Spine Cleared: Yes Provider who Cleared Cervical Spine: Neurosurgery Time Cervical Spine was Cleared: 07:30 Physical Exam - Physical Exam General Appearance: WD/WN (Mild confusion noted ( unclear of baseline)) EENT: PERRL/EOMI, normal ENT inspection, other (tender in right occipital/ basilar/parietal region ) Neck: non-tender, full range of motion, supple Respiratory: chest non-tender, lungs clear, normal breath sounds Cardiac/Chest: regular rate, rhythm Abdomen: normal bowel sounds, non-tender, soft Pelvic Exam: other (stable to AP and lateral pressure) Rectal: deferred Back: Normal inspection Skin: normal color, warm/dry Lymphatic: no adenopathy Extremities: normal range of motion, non-tender, normal inspection Neuro/Psych: no motor/sensory deficits, normal mood/affect Time Spent w/Patient (minutes): 35
[2018-08-15] MEDS ORDERED: LORazepam 2 MG/ML INJ IV PRN (11:08)
[2018-08-15] MEDS ORDERED: LORazepam 2 MG/ML INJ IV ONE ×2 (11:15→12:00)
[2018-08-15] MEDS ORDERED: IOPAMIDOL (ISOVUE 370) 100 ML BTL IV ONE (12:06)
[2018-08-15] MEDS: NS 1,000 ML IV SCH (12:18)
--- NOTE | 2018-08-15 13:56 | ASMTCMCOM ---
CM Note CM Note Notes: Late Entry from last night and Updates from today: Pt presented to the ED last night as a FTA after she fell down a couple flights of stairs and was found unresponsive. Pt presented to the ED minimally responsive and w/AMS. Pt admitted for intraparenchymal hemorrhage and skull base fracture. Per pt's , Benedicto Onofre ([phone]), pt's PMH includes early stages of Alzheimers, hypothyroid, restless leg syndrome. Pt had reportedly been drinking a moderate amount of alcohol earlier in the afternoon prior to her fall. Benedicto was at home when the pt had the fall and he found her at the bottom of the stairs. CM spoke w/Benedicto extensively about the challenges they have been going through in regards to the pt's early Alzheimers. CM provided empathetic listening, emotional support, etc. Benedicto says he sees a therapist regularly and has gone to support groups in the past but going to the groups has been "terrifying" and potentially not helpful at this stage. Benedicto states that about a year or so ago the pt was seen by neurologist who used the term "demented" in front of and the pt was very upset and said she didn't want to see that Dr again. Benedicto states "she is very much in denial." Pt has not followed up with any other neurologist. Pt's PCP is listed as Dr Gt Garland at [facility] ([phone]). 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 Benedicto is a musician and program/music director and states that music, singing, etc play a significant role in their family. Benedicto states their daughter, Marylu Antoine ([phone]), lives in [place]. Benedicto says they do not have any home care assistance but have been thinking about "when to start bringing people in" and is open to skilled and private duty homecare resources. DC NEEDS: Benedicto is aware pt may need to go to short term rehab at SNF or Inpt Rehab(?) before returning home. PT/OT evals ordered and still pending. HEADING AND PRIMING OPERATOR reccs DC home. CM to follow. Also, Benedicto reported that the pt usually drinks a few glasses of wine every night but last night she drank tequila. CM to check in w/Benedicto and pt re:pt's ETOH use and possible need for resources, etc. Date Signed: 08/15/2018 01:54 PM Electronically Signed By:Jossy Fonseca RN
[2018-08-15] MEDS ORDERED: FLUMAZENIL 0.5 MG/5 ML MDV IVP PRN (14:54)
[2018-08-15] MEDS: ACETAMINOPHEN 500 MG TAB PO SCH ×2 (15:27→22:10)
[2018-08-15] MEDS: FAMOTIDINE 20 MG TAB PO SCH ×2 (15:28→22:10)
[2018-08-15] MEDS: LEVOTHYROXINE 75 MCG TAB PO SCH (15:38)
--- NOTE | 2018-08-15 17:28 | GCON ---
[f rep st] CONSULTATION PULMONARY/CRITICAL CARE CONSULTATION DATE OF CONSULTATION: 08/15/2018 REFERRING PHYSICIAN: Phill Dong MD REASON FOR REFERRAL: Evaluation and management of delirium. HISTORY: The patient is a 73-year-old woman who lives independently, but has mild-moderate Alzheimer 's dementia. She sustained a fall down a flight of stairs while at home. Per her , apparentl y, she had a large Tequila drink after dinner in the evening yesterday evening prior to the fall. Heri hoyt was found unresponsive by EMS and was brought to the emergency department with spinal precautions. She became more alert, but remained disoriented during last night and into this morning. PAST MEDICAL HISTORY: Dementia, hypothyroid. MEDICATIONS: Trazodone and levothyroxine. ALLERGIES: Sulfa. SOCIAL HISTORY: The patient lives at home alone with her . He reports that she drives and is able to do basic shopping, but is unable to do tasks, such as meal planning or other independent tas ks. She has moderate alcohol intake and does not smoke. FAMILY HISTORY: Unremarkable. REVIEW OF SYSTEMS: Unobtainable due to the patient's mental status. PHYSICAL EXAMINATION: GENERAL: The patient is somnolent, but arousable. She is short on answers to questions. She is oriented to person. VITAL SIGNS: Blood pressure is 126/74 with a heart rate of 8 3. She is afebrile. Oxygen saturations are 93% on room air. HEENT: Normocephalic. She has a smal l abrasion in her scalp. No icterus. NECK: No JVD. Trachea is midline. CHEST: Clear to ausculta tion cardiac regular rate and rhythm without murmur. ABDOMEN: Soft, nontender. Bowel sounds are pr esent. EXTREMITIES: No clubbing, cyanosis, or edema. NEURO: The patient is , somnolent, but arous able. She has no gross motor or sensory deficits. LABORATORY/IMAGING: White blood count is 11.4. Chemistry group is unremarkable. Alcohol level is [address] of the head shows a nondisplaced right skull base fracture. There is a small amount of air wher e the carotid enters the skull base extending up to the sinuses. There are some diffuse scattered ar eas of subarachnoid hemorrhage. Images reviewed by me. Chest x-ray is unremarkable at laboratory history. ASSESSMENT: 1. Fall with basilar skull fracture and intracranial hemorrhage. Expected this will be nonoperative . 2. Dementia. The patient has underlying yifn-zh-uknjovhh dementia. 3. Delirium. Based on the family status description of her baseline dementia, she appears to have a component of acute delirium as well. This is likely postconcussive and related to the intracranial hemorrhages. I expect that these will improve to some extent as her head injury improves, but she ma y not return to her prior level of function. She is also at risk for delirium rated related events, such as falls and acute agitation. 4. Acute alcohol intoxication. Per the , the patient does not have a regular alcohol use. T he intoxication last night could contribute to the patient's fall, but hopefully we will not have any problems with alcohol withdrawal given her minimal usual alcohol intake. RECOMMENDATIONS: 1. ICU monitoring as per Neurosurgery and Trauma surgery. 2. Will do delirium monitoring and interventions, including protected sleep time, frequent reorienta tion during the day, family involvement, and initiation of physical and occupational therapy. Medica tions will be used as needed, but avoid benzodiazepines if possible. /[id number]/MODL
[2018-08-15] MEDS: LORazepam 2 MG/ML INJ IVP PRN ×2 (20:13→21:25)
[2018-08-15] MEDS: HALOPERIDOL LACT 5 MG/ML INJ IVP PRN (22:18)
[2018-08-16] MEDS: LORazepam 2 MG/ML INJ IVP PRN ×3 (00:31→15:59)
[2018-08-16] MEDS: NS 1,000 ML IV SCH (05:03)
[2018-08-16] MEDS: ACETAMINOPHEN 500 MG TAB PO SCH ×4 (05:15→23:06)
[2018-08-16] MEDS: LEVOTHYROXINE 75 MCG TAB PO SCH (05:16)
--- NOTE | 2018-08-16 08:02 | NEUSURGPN ---
Assessment/Plan: Assessment: 73 yo female admitted with neuro changes that had imaging showing TSAH (punctate) after a fall Plan: -Pre-existing dementia not characterized. Neurology may weigh in on this while she remains an inpatient but Dr Rios is not sure their clinical impression will be all that useful in the context of her mild head injury. -Mild head injury superimposed. We do not know what impact this will have on her. Continue with speech pt ot. They will help us plan the next move whether it be return to home or a short stay in rehab this will depend on their assessment. -C collar was removed already. She continues to have no neck pain and the CT was negative -Discharge planning -Ok to leave the ICU to a regular floor -Right Skull base fx through the carotid region. No need for further imaging. We will restart daily aspirin therapy in 1 day-already ordered -Previous aspirin therapy. See 6 above. -Bilateral subdural hygromas are secondary to brain atrophy and cerebral volume loss. These cannot be treated, but they likely increase the probability of her developing post traumatic chronic SDH. We will get a new CT head in 3 weeks to re evaluate -CTA was done that was neg except for some plaque in the carotids -Call with any questions or concerns Subjective: Awake and alert. NAD. Updates from RN Objective: AAO x 3, PERRLA/EOMI no droop Eyes are open, reactive Motor: FC Bilaterally V: speech production minimal Neuro Check Frequency: per routine Urinary Catheter in Place: No Catheter Insertion Date: 08/14/18 - Physician Discussed Patient with : Gabriel Patient Seen by : Gabriel Neurosurgery Physical Exam - Vitals, I&O, Labs I and O 08/15/18 08/16/18 08/17/18 05:59 05:59 05:59 Intake Total 567 1798 Output Total 550 475 Balance 17 1323 Weight 49 kg Intake: Oral (ml) 240 IV Infused (ml) 567 1558 Ns 1,000 ml @ 100 mls/hr 567 1558 IV CONT SHANE Rx#: [id number] Output: Urine (ml) 550 475 Bedside Commode 300 Catheter 550 175 Other: Number of Voids Incontinence 2 Number of Stools Bedside Commode 0 Catheter 0 Post Void Residual Scan Volume (ml) Bedside Commode 165 Vital Signs Temp Pulse Resp BP Pulse Ox 37.0 C 70 15 118/69 95 08/15/18 23:53 08/16/18 04:00 08/16/18 04:00 08/16/18 04:00 08/16/18 04:00 Laboratory Results 08/15/18 04:15 ICD10 Worksheet Patient Problems: Problems Problem Status Onset Intraparenchymal hemorrhage of brain Acute Skull fracture Acute DVT (deep venous thrombosis) Acute
[2018-08-16] MEDS ORDERED: THIAMINE HCL 500 MG in NS 100 ML IV SCH (09:00)
[2018-08-16] MEDS: levETIRAcetam 500MG/NACL 100 ML IV SCH ×2 (09:05→23:35)
[2018-08-16] MEDS: HALOPERIDOL LACT 5 MG/ML INJ IVP PRN (09:10)
[2018-08-16] MEDS: FOLIC ACID 1 MG TAB PO SCH (09:30)
[2018-08-16] MEDS: FAMOTIDINE 20 MG TAB PO SCH ×2 (09:30→23:06)
[2018-08-16] MEDS: MULTIVITAMINS 1 EACH TAB PO SCH (09:30)
--- NOTE | 2018-08-16 09:43 | TRAUMAPN ---
Trauma Progress Note Assessment/Plan: PAD#1 08/15/2018 Assessment: No complaints except with right posterior/basilar/lateral skull palpation. Neurologic baseline (dementia) unclear but no focal findings this AM. Findings of air in Right carotid syphon confirmed with radiology. Plan: CTA neck/brain to evaluate right carotid syphon for injury. Roll belt due to impulsivity PAD#2 08/16/2018 Assessment: Patient agitated last PM and was sedated with a combination of Ativan/Haldol. Mucvh less responsive this morning at 5:30 AM but has improved as of 9:30 AM. Moves upper extremities spontaneously but not to command. Not moving lower extremities ether spontaneously or to command. No verbal response. CTA yesterday showed no vascular injury. TSH was normal. Plan: Expect medication related sedation to resolve. If it does not will re-assess amd consider rescan. Subjective: no verbal response. Objective: Vital Signs Temp Pulse Resp BP Pulse Ox 37.1 C 73 18 120/71 97 08/16/18 08:00 08/16/18 08:00 08/16/18 08:00 08/16/18 08:00 08/16/18 08:00 Laboratory Results 08/15/18 04:15 08/15/18 08/16/18 08/17/18 05:59 05:59 05:59 Intake Total 567 1798 Output Total 550 475 Balance 17 1323 PT REJ 08/15/18 04:15 INR REJ 08/15/18 04:15 - C-Spine Clearance Cervical Spine Cleared: Yes Provider who Cleared Cervical Spine: Neurosurgery Time Cervical Spine was Cleared: 07:30 Physical Exam - Physical Exam General Appearance: WD/WN, no apparent distress Neck: non-tender, supple Respiratory: chest non-tender, lungs clear, normal breath sounds Cardiac/Chest: regular rate, rhythm Abdomen: normal bowel sounds, non-tender, soft Pelvic Exam: deferred Rectal: deferred Back: Normal inspection Skin: normal color, warm/dry Extremities: normal range of motion, non-tender, normal inspection Neuro/Psych: other (Moving upper extremities spontanously but not to command, eyes open but no response to verbal commands, not moving lower extremities to either verbal command or spontanously.) Time Spent w/Patient (minutes): 35 (two visits)
[2018-08-16] MEDS ORDERED: LORazepam 2 MG/ML INJ IVP ONE ×2 (16:15→16:45)
[2018-08-16 18:01] LABS: PLATELET COUNT 308 10^3/uL (150-400)
[2018-08-16] MEDS ORDERED: NS 500 ML IV ONE (18:33)
--- NOTE | 2018-08-16 19:22 | GCON ---
[f rep st] CONSULTATION DATE OF CONSULTATION: 08/16/2018 REASON FOR CONSULTATION: I was asked by Dr. Dong to see the patient in regard to her medical issue s including dementia, alcohol abuse and hypothyroid. HISTORY OF PRESENT ILLNESS: This is 73-year-old female who was previously living independently suffe red a fall after drinking a few alcoholic beverages and hit her head. She was found to have a skull fracture. Neurosurgery felt that this was non operative. She had been monitored in the ICU. For ag itation last night, she received 2 mg of Ativan IV as well as Haldol. After that, per report, she ballesteros s been less responsive and more agitated. She has been moving all extremities; however, has not retu rned to her previous condition from yesterday. She had a followup CT scan of her head today which wa s stable from yesterday. She had received 5 mg of Ativan IV in order to complete that CT scan. PAST MEDICAL/SURGICAL HISTORY: 1. Hypothyroid. 2. Dementia. 3. Alcohol use. 4. History of a DVT, off anticoagulation. MEDICATIONS: Please see medication reconciliation. ALLERGIES: Sulfa. FAMILY HISTORY: Reviewed and noncontributory. SOCIAL HISTORY: She lived with her . She did not drink daily but she would have alcohol on o ccasion. 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 REVIEW OF SYSTEMS: This is unobtainable due the patient's mental status. PHYSICAL EXAM: VITAL SIGNS: Blood pressure is 128/81, heart rate 74, respiration rate 18, saturatin g 94% on 2 L. GENERAL: The patient is an obtunded female who is moving all extremities but will not respond to verbal stimuli or follow commands. CARDIOVASCULAR: Shows her to have a regular rate and rhythm. No murmurs, rubs, or gallops. PULMONARY: Lungs clear to auscultation bilaterally. ABDOME N: Soft, nontender, nondistended. SKIN: Shows no rash. : No [place]ell. NEUROLOGIC: Largely unobt ainable; however, she does appear to be moving all extremities but she is not really responsive. PSY CHIATRIC: Exam is unobtainable. LABS: Basic metabolic panel is normal. LFTs were normal. CBC showed a mildly elevated white count. Urinalysis was negative. Tox screen showed alcohol level of 193. DATA: 1. Discussed on rounds with Dr. Dong as well as Dr. Love. 2. I reviewed her head CT which was stable from yesterday. IMPRESSION AND PLAN: 1. Acute toxic versus metabolic encephalopathy: This may be due to Ativan that she received, she di d receive additional Ativan today. We will also look for other causes including infection. I do not think this is consistent with ACS. I have ordered a chest x-ray, urinalysis and repeat labs. Furth er workup will depend on any clinical findings there. Will do everything possible to hold out Ativan . If she becomes agitated would prefer Haldol at this point. 2. Skull fracture and intraparenchymal hemorrhages. This is nonoperative per Neurosurgery. Recomme nd restarting her previous aspirin therapy in 2 days. 3. Dementia. It is unclear exactly what the level of her dementia was. We will try to obtain colla teral. 4. Hypothyroid, Synthroid. 5. Alcohol abuse. She does not appear to be withdrawing at this point, I do not think that is the c ause of her encephalopathy. Will follow closely throughout her hospital course. Thank you for involving Hospital Medicine in the care of the patient. We will continue to follow ashley vazquez. /[id number]/MODL
--- NOTE | 2018-08-17 07:06 | NEUSURGPN ---
Assessment/Plan: Assessment: 73 yo female admitted with neuro changes that had imaging showing TSAH (punctate) after a fall Plan: -Pre-existing dementia not characterized. Neurology may weigh in at some point but Dr Rios is not sure their clinical impression will be all that useful in the context of her head injury. -Mild head injury superimposed. We do not know what impact this will have on her. Continue with speech pt ot. They will help us plan the next move which will likely be a short stay in rehab -C collar was removed already. She continues to have no neck pain and the CT was negative -Discharge planning -Ok to leave the ICU to a regular floor with sitter -Right Skull base fx through the carotid region. No need for further imaging. We will restart daily aspirin therapy today-already ordered -Previous aspirin therapy. See above. -Bilateral subdural hygromas are secondary to brain atrophy and cerebral volume loss. These cannot be treated, but they likely increase the probability of her developing post traumatic chronic SDH. We will get a new CT head in 3 weeks to re evaluate -CTA was done that was neg except for some plaque in the carotids, repeat CT head yesterday stable -Call with any questions or concerns -pt seen by Dr Rios as well Subjective: Awake and alert to verbal, will give me her name. No new events per RN Objective: AAO x 3, PERRLA/EOMI no droop Eyes are open, reactive Provides name Motor: FC Bilaterally V: speech production minimal improved from yesterdays exam-more alert Neuro Check Frequency: per routine Urinary Catheter in Place: No Catheter Insertion Date: 08/14/18 - Physician Discussed Patient with : Gabriel Patient Seen by : Gabriel Neurosurgery Physical Exam - Vitals, I&O, Labs I and O 08/16/18 08/17/18 08/18/18 05:59 05:59 05:59 Intake Total 1798 250 Output Total 475 403 Balance 1323 -153 Intake: Oral (ml) 240 250 IV Infused (ml) 1558 Ns 1,000 ml @ 100 mls/hr 1558 IV CONT SHANE Rx#: [id number] Output: Urine (ml) 475 403 Bedside Commode 300 Catheter 175 400 Incontinence 2 Toilet 1 Other: Intake Quantity No Sufficient Number of Voids Incontinence 2 1 Toilet 1 Number of Stools Bedside Commode 0 Post Void Residual Scan Volume (ml) Bedside Commode 165 Vital Signs Temp Pulse Resp BP Pulse Ox 37.2 C 99 16 132/84 H 96 08/17/18 04:00 08/17/18 04:00 08/17/18 04:00 08/17/18 04:00 08/17/18 04:00 Laboratory Results 08/16/18 17:45 08/17/18 05:33 ICD10 Worksheet Patient Problems: Problems Problem Status Onset Intraparenchymal hemorrhage of brain Acute Skull fracture Acute DVT (deep venous thrombosis) Acute
--- NOTE | 2018-08-17 09:17 | TRAUMAPN ---
Trauma Progress Note Assessment/Plan: PAD#1 08/15/2018 Assessment: No complaints except with right posterior/basilar/lateral skull palpation. Neurologic baseline (dementia) unclear but no focal findings this AM. Findings of air in Right carotid syphon confirmed with radiology. Plan: CTA neck/brain to evaluate right carotid syphon for injury. Roll belt due to impulsivity PAD#2 08/16/2018 Assessment: Patient agitated last PM and was sedated with a combination of Ativan/Haldol. Mucvh less responsive this morning at 5:30 AM but has improved as of 9:30 AM. Moves upper extremities spontaneously but not to command. Not moving lower extremities ether spontaneously or to command. No verbal response. CTA yesterday showed no vascular injury. TSH was normal. Plan: Expect medication related sedation to resolve. If it does not will re-assess and consider rescan. PAD#3 08/17/2018 Assessment: Patient was rescanned yesterday and no significant changes were noted. This am she is improved- opens eyes spontaneously and to voice, moves all extremities spontaneously but not to command. No longer agitated. Plan: will transfer out of ICU Subjective: no verbalization Objective: Vital Signs Temp Pulse Resp BP Pulse Ox 37.1 C 76 15 132/67 H 96 08/17/18 07:05 08/17/18 07:05 08/17/18 07:05 08/17/18 07:05 08/17/18 07:05 Laboratory Results 08/16/18 17:45 08/17/18 05:33 08/16/18 08/17/18 08/18/18 05:59 05:59 05:59 Intake Total 1798 250 Output Total 475 403 Balance 1323 -153 PT REJ 08/15/18 04:15 INR REJ 08/15/18 04:15 - C-Spine Clearance Cervical Spine Cleared: Yes Provider who Cleared Cervical Spine: Neurosurgery Time Cervical Spine was Cleared: 07:30 Physical Exam - Physical Exam General Appearance: WD/WN, no apparent distress Neck: full range of motion, supple Respiratory: chest non-tender, lungs clear, normal breath sounds Cardiac/Chest: regular rate, rhythm Abdomen: normal bowel sounds, non-tender, soft Pelvic Exam: deferred Rectal: deferred Back: Normal inspection Skin: normal color, warm/dry Extremities: normal range of motion, non-tender, normal inspection Neuro/Psych: no motor/sensory deficits Time Spent w/Patient (minutes): 25
[2018-08-17] MEDS: levETIRAcetam 500MG/NACL 100 ML IV SCH (09:23)
[2018-08-17] MEDS: ACETAMINOPHEN 500 MG TAB PO SCH ×3 (10:38→22:02)
[2018-08-17] MEDS: LEVOTHYROXINE 75 MCG TAB PO SCH (12:57)
[2018-08-17] MEDS: ASPIRIN 325 MG TAB PO SCH (12:57)
[2018-08-17] MEDS: MULTIVITAMINS 1 EACH TAB PO SCH (12:57)
[2018-08-17] MEDS: FOLIC ACID 1 MG TAB PO SCH (12:57)
[2018-08-17] MEDS: FAMOTIDINE 20 MG TAB PO SCH ×2 (12:57→22:02)
[2018-08-17] MEDS: THIAMINE HCL 100 MG TAB PO SCH (12:58)
[2018-08-17] MEDS: NS 1,000 ML IV SCH (15:07)
--- NOTE | 2018-08-17 17:06 | HOSPPROG ---
Hospitalist Progress Note Assessment/Plan: # metabolic encephalopathy - non-pharm measures, correct underlying conditions as possible # hypoNa - SIADH per ULytes, but slow improvement with NS - follow daily for now # underlying dementia - unclear how significant this is currently # skull fracture, intraparenchymal hemorrhages - non-op per neurosurgery - asa restarted # etOH use, no withdrawal Subjective: sleeping; did walk alot today; still not speaking much Objective: Vital Signs Temp Pulse Resp BP Pulse Ox 36.6 C 75 20 133/77 H 97 08/17/18 16:39 08/17/18 16:39 08/17/18 16:39 08/17/18 16:39 08/17/18 16:39 Laboratory Results 08/16/18 17:45 08/17/18 05:33 08/16/18 08/17/18 08/18/18 05:59 05:59 05:59 Intake Total 1798 250 Output Total 475 403 200 Balance 1323 -153 -200 PT REJ 08/15/18 04:15 INR REJ 08/15/18 04:15 - Physical Exam Constitutional: other (comfortable, sleeping in w/c) Cardiovascular: regular rate and rhythym, no murmur, rub, or gallop Respiratory: no respiratory distress, no rales or rhonchi, clear to auscultation Gastrointestinal: soft, non-tender abdomen, no palpable masses, No guarding, No rebound ICD10 Worksheet Patient Problems: Problems Problem Status Onset DVT (deep venous thrombosis) Acute Intraparenchymal hemorrhage of brain Acute Skull fracture Acute
[2018-08-18] MEDS: LEVOTHYROXINE 75 MCG TAB PO SCH (05:07)
[2018-08-18] MEDS: ACETAMINOPHEN 500 MG TAB PO SCH ×2 (05:08→16:47)
[2018-08-18] MEDS: NS 1,000 ML IV SCH (06:07)
--- NOTE | 2018-08-18 08:11 | NEUSURGPN ---
Assessment/Plan: Assessment: 73 yo female admitted with neuro changes that had imaging showing TSAH (punctate) after a fall Plan: -Pre-existing dementia not characterized. Neurology may weigh in at some point but Dr Rios is not sure their clinical impression will be all that useful in the context of her head injury. 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 We do not know what impact this will have on her. Continue with speech pt ot. They will help us plan the next move which will likely be a short stay in rehab -C collar was removed already. She continues to have no neck pain and the CT was negative -Ok to leave the ICU to a regular floor with sitter -Right Skull base fx through the carotid region. No need for further imaging. Okay for ASA -Bilateral subdural hygromas are secondary to brain atrophy and cerebral volume loss. These cannot be treated, but they likely increase the probability of her developing post traumatic chronic SDH. We will get a new CT head in 3 weeks to re evaluate -CTA was done that was neg except for some plaque in the carotids, repeat CT head yesterday stable -Call with any questions or concerns -Discharge planning will require rehab Discussed with Dr. Rios. There is no acute neurosurgical issue, will s/o today. Subjective: Denies any pain Objective: NAD Alert and walking around the room with therapy Yaneli CASTILLO MAEx4 Catheter Insertion Date: 08/14/18 - Physician Discussed Patient with Dr.: Rios Neurosurgery Physical Exam - Vitals, I&O, Labs I and O 08/17/18 08/18/18 08/19/18 05:59 05:59 05:59 Intake Total 250 900 Output Total 403 300 Balance -153 -300 900 Intake: Oral (ml) 250 IV Intake (ml) 900 Output: Urine (ml) 403 300 Bedside Commode 200 Catheter 400 Incontinence 2 Toilet 1 100 Other: Intake Quantity No Sufficient Number of Voids Incontinence 1 Toilet 1 1 Vital Signs Temp Pulse Resp BP Pulse Ox 36.8 C 78 16 121/64 H 94 08/18/18 04:00 08/18/18 04:00 08/18/18 04:00 08/18/18 04:00 08/18/18 04:00 Laboratory Results 08/16/18 17:45 08/18/18 05:25 ICD10 Worksheet Patient Problems: Problems Problem Status Onset Intraparenchymal hemorrhage of brain Acute Skull fracture Acute DVT (deep venous thrombosis) Acute
--- NOTE | 2018-08-18 09:52 | ASMTCMCOM ---
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 Spoke with pt dghtr Marylu and Benedicto, discussing d/c options. The pt and family want the [facility] inpatient rehab as d/c plan. Marylu obtained pt insurance care, a copy made and provided to [facility] inpatient rehab because the face sheet information was not correct. Pt currently is 1:1 and Nora with [facility] inpatient rehab admissions reports they can still accept pt if she needs sitter at d/c. D/c plan of care: [facility] inpatient rehab when medically stable and insurance approves Date Signed: 08/18/2018 09:50 AM Electronically Signed By:ANGELIKA Kurtz
[2018-08-18] MEDS: THIAMINE HCL 100 MG TAB PO SCH (13:01)
[2018-08-18] MEDS: ASPIRIN 325 MG TAB PO SCH (13:01)
[2018-08-18] MEDS: FOLIC ACID 1 MG TAB PO SCH (13:01)
[2018-08-18] MEDS: FAMOTIDINE 20 MG TAB PO SCH ×2 (13:01→23:00)
[2018-08-18] MEDS: MULTIVITAMINS 1 EACH TAB PO SCH (13:01)
--- NOTE | 2018-08-18 16:34 | HOSPPROG ---
Hospitalist Progress Note Assessment/Plan: # metabolic encephalopathy - non-pharm measures, correct underlying conditions as possible # hypoNa - SIADH per ULytes, but slow improvement with NS - follow daily for now # underlying dementia - unclear how significant this is currently # skull fracture, intraparenchymal hemorrhages - non-op per neurosurgery - asa restarted # etOH use, no withdrawal Subjective: Pt answering yes/no questions intermittently, reports no pain Objective: Vital Signs Temp Pulse Resp BP Pulse Ox 36.4 C 85 16 123/78 H 98 08/18/18 12:48 08/18/18 12:48 08/18/18 12:48 08/18/18 12:48 08/18/18 12:48 Laboratory Results 08/16/18 17:45 08/18/18 05:25 08/17/18 08/18/18 08/19/18 05:59 05:59 05:59 Intake Total 250 900 Output Total 403 300 Balance -153 -300 900 PT REJ 08/15/18 04:15 INR REJ 08/15/18 04:15 - Physical Exam Constitutional: chronically ill appearing Eyes: PERRL Ears, Nose, Mouth, Throat: moist mucous membranes Cardiovascular: regular rate and rhythym Respiratory: no respiratory distress Gastrointestinal: soft, non-tender abdomen Skin: warm Musculoskeletal: full muscle strength Neurologic: No AAOx3 Psychiatric: flat affect, No interacting appropriately ICD10 Worksheet Patient Problems: Problems Problem Status Onset Intraparenchymal hemorrhage of brain Acute Skull fracture Acute DVT (deep venous thrombosis) Acute
[2018-08-18] MEDS: HALOPERIDOL LACT 5 MG/ML INJ IVP PRN (16:54)
--- NOTE | 2018-08-18 16:58 | SOAPPROG ---
SOAP Progress Note Assessment/Plan: Assessment/plan: 73 y/o F with dementia s/p fall. Skull fracture, intraparenchymal hemorrhages, concussion. Nonop per neurosurgery Dementia. Unclear if current status is her baseline. S: Trying to go for a walk during visit. Unable to tell me her last name or where she is. O: Confused, disoriented Afebrile,VSS HEENT: normocephalic, mmm, no scleral icterus Ecchymosis right side of neck RRR No increased WOB Abdomen: soft, nontender, nondistended Musculoskeletal: MAEx4 08/18/18 16:52 Objective: Vital Signs Temp Pulse Resp BP Pulse Ox 36.4 C 85 16 123/78 H 98 08/18/18 12:48 08/18/18 12:48 08/18/18 12:48 08/18/18 12:48 08/18/18 12:48 Laboratory Results 08/16/18 17:45 08/18/18 05:25 08/17/18 08/18/18 08/19/18 05:59 05:59 05:59 Intake Total 250 900 Output Total 403 300 Balance -153 -300 900 PT REJ 08/15/18 04:15 INR REJ 08/15/18 04:15 ICD10 Worksheet Patient Problems: Problems Problem Status Onset Intraparenchymal hemorrhage of brain Acute Skull fracture Acute DVT (deep venous thrombosis) Acute
[2018-08-19] MEDS: ACETAMINOPHEN 500 MG TAB PO SCH ×3 (04:05→14:24)
[2018-08-19] MEDS: LEVOTHYROXINE 75 MCG TAB PO SCH (05:23)
[2018-08-19] MEDS: FAMOTIDINE 20 MG TAB PO SCH (08:00)
[2018-08-19] MEDS: MULTIVITAMINS 1 EACH TAB PO SCH (08:00)
[2018-08-19] MEDS: THIAMINE HCL 100 MG TAB PO SCH (08:00)
[2018-08-19] MEDS: FOLIC ACID 1 MG TAB PO SCH (08:00)
[2018-08-19] MEDS: ASPIRIN 325 MG TAB PO SCH (08:00)
--- NOTE | 2018-08-19 08:40 | TRAUMAPN ---
Trauma Progress Note Assessment/Plan: PAD#1 08/15/2018 Assessment: No complaints except with right posterior/basilar/lateral skull palpation. Neurologic baseline (dementia) unclear but no focal findings this AM. Findings of air in Right carotid syphon confirmed with radiology. Plan: CTA neck/brain to evaluate right carotid syphon for injury. Roll belt due to impulsivity PAD#2 08/16/2018 Assessment: Patient agitated last PM and was sedated with a combination of Ativan/Haldol. Mucvh less responsive this morning at 5:30 AM but has improved as of 9:30 AM. Moves upper extremities spontaneously but not to command. Not moving lower extremities ether spontaneously or to command. No verbal response. CTA yesterday showed no vascular injury. TSH was normal. Plan: Expect medication related sedation to resolve. If it does not will re-assess and consider rescan. PAD#3 08/17/2018 Assessment: Patient was rescanned yesterday and no significant changes were noted. This am she is improved- opens eyes spontaneously and to voice, moves all extremities spontaneously but not to command. No longer agitated. Plan: will transfer out of ICU PAD#5 08/19/2018 Assessment: AFeb, VSS Not sleeping much but dramatically better. She is up walking in [place] on a regular basis. Very busy folding and refolding sheets/blanket as she walks around the bed. Answers to name but not oriented to place or time. Na coming up. She has baseline dementia compounded by hyponatremia ( resolving) and TBI. no focal neurologic findings Plan: inpatient rehab plans in progress. (awaiting insurance approval) Subjective: No real answers to questions posed. Nursing reports voiding and stools. Objective: Vital Signs Temp Pulse Resp BP Pulse Ox 36.5 C 77 16 109/74 94 08/19/18 04:43 08/19/18 04:43 08/19/18 04:43 08/19/18 04:43 08/19/18 04:43 Laboratory Results 08/16/18 17:45 08/19/18 05:18 08/18/18 08/19/18 08/20/18 05:59 05:59 05:59 Intake Total 1570.2 150 Output Total 300 300 Balance -300 1270.2 150 PT REJ 08/15/18 04:15 INR REJ 08/15/18 04:15 - C-Spine Clearance Cervical Spine Cleared: Yes Provider who Cleared Cervical Spine: Neurosurgery Time Cervical Spine was Cleared: 07:30 Physical Exam - Physical Exam General Appearance: WD/WN, alert (but not interactive), no apparent distress Neck: non-tender, full range of motion, supple Respiratory: chest non-tender, lungs clear, normal breath sounds Cardiac/Chest: regular rate, rhythm Abdomen: non-tender, soft Pelvic Exam: deferred Rectal: deferred Skin: normal color, warm/dry Neuro/Psych: no motor/sensory deficits Time Spent w/Patient (minutes): 25
--- NOTE | 2018-08-19 13:59 | HOSPPROG ---
Hospitalist Progress Note Assessment/Plan: # metabolic encephalopathy - non-pharm measures, correct underlying conditions as possible - RN reports minimal sleep last night, Ropinirole was ordered which patient refused last night (home medication), will order seroquel to help with agitation # hypoNa - SIADH per ULytes, but slow improvement with NS, Na 133 this AM - follow daily for now # underlying dementia - unclear how significant this is currently, consider Neurology consult (patient's daughter requesting), will defer to neurosurgery/ trauma # skull fracture, intraparenchymal hemorrhages - non-op per neurosurgery - asa restarted # etOH use, no withdrawal Subjective: Pt folding items this morning and walking halls, does not answer questions appopriately Objective: Vital Signs Temp Pulse Resp BP Pulse Ox 36.3 C 94 16 150/86 H 92 08/19/18 08:00 08/19/18 08:00 08/19/18 08:00 08/19/18 08:00 08/19/18 08:00 Laboratory Results 08/16/18 17:45 08/19/18 05:18 08/18/18 08/19/18 08/20/18 05:59 05:59 05:59 Intake Total 1570.2 150 Output Total 300 300 100 Balance -300 1270.2 50 PT REJ 08/15/18 04:15 INR REJ 08/15/18 04:15 - Physical Exam Constitutional: chronically ill appearing Eyes: PERRL Ears, Nose, Mouth, Throat: moist mucous membranes Cardiovascular: regular rate and rhythym Respiratory: no respiratory distress Gastrointestinal: No distension Genitourinary: No del castillo in urethra Skin: normal color Musculoskeletal: full muscle strength Neurologic: No AAOx3 Psychiatric: poor insight, poor memory, No interacting appropriately, No thought process linear ICD10 Worksheet Patient Problems: Problems Problem Status Onset Intraparenchymal hemorrhage of brain Acute Skull fracture Acute DVT (deep venous thrombosis) Acute
[2018-08-19] MEDS: HALOPERIDOL LACT 5 MG/ML INJ IVP PRN ×2 (15:20→23:38)
[2018-08-19] MEDS: QUEtiapine FUMARATE 25 MG TAB PO SCH (21:41)
[2018-08-19] MEDS: MELATONIN 3 MG TAB PO PRN (21:41)
[2018-08-20] MEDS: FAMOTIDINE 20 MG TAB PO SCH ×3 (01:07→20:52)
[2018-08-20] MEDS: ACETAMINOPHEN 500 MG TAB PO SCH ×4 (01:07→20:52)
[2018-08-20] MEDS: LEVOTHYROXINE 75 MCG TAB PO SCH (05:26)
[2018-08-20] MEDS: ASPIRIN 325 MG TAB PO SCH (08:24)
[2018-08-20] MEDS: THIAMINE HCL 100 MG TAB PO SCH (08:26)
[2018-08-20] MEDS: FOLIC ACID 1 MG TAB PO SCH (08:26)
[2018-08-20] MEDS: MULTIVITAMINS 1 EACH TAB PO SCH (08:26)
--- NOTE | 2018-08-20 09:16 | TRAUMAPN ---
Trauma Progress Note Assessment/Plan: PAD#1 08/15/2018 Assessment: No complaints except with right posterior/basilar/lateral skull palpation. Neurologic baseline (dementia) unclear but no focal findings this AM. Findings of air in Right carotid syphon confirmed with radiology. Plan: CTA neck/brain to evaluate right carotid syphon for injury. Roll belt due to impulsivity PAD#2 08/16/2018 Assessment: Patient agitated last PM and was sedated with a combination of Ativan/Haldol. Mucvh less responsive this morning at 5:30 AM but has improved as of 9:30 AM. Moves upper extremities spontaneously but not to command. Not moving lower extremities ether spontaneously or to command. No verbal response. CTA yesterday showed no vascular injury. TSH was normal. Plan: Expect medication related sedation to resolve. If it does not will re-assess and consider rescan. PAD#3 08/17/2018 Assessment: Patient was rescanned yesterday and no significant changes were noted. This am she is improved- opens eyes spontaneously and to voice, moves all extremities spontaneously but not to command. No longer agitated. Plan: will transfer out of ICU PAD#5 08/19/2018 Assessment: AFeb, VSS Not sleeping much but dramatically better. She is up walking in [place] on a regular basis. Very busy folding and refolding sheets/blanket as she walks around the bed. Answers to name but not oriented to place or time. Na coming up. She has baseline dementia compounded by hyponatremia ( resolving) and TBI. no focal neurologic findings Plan: inpatient rehab plans in progress. (awaiting insurance approval) PAD#6 08/20/2018 Assessment: Much clearer and alert this morning. Still A&O x 1 however. GCS 15. Slept well last night. Walked extensively yesterday. NA 133. Neurosurgery had suggested [facility] evaluation be delayed until recovery complete from this event so that an accurate evaluation can be obtained. Plan: Still awaiting insurance approval for inpatient rehab Subjective: no complaints Objective: Vital Signs Temp Pulse Resp BP Pulse Ox 36.8 C 67 18 124/75 H 95 08/20/18 07:38 08/20/18 07:38 08/20/18 07:38 08/20/18 07:38 08/20/18 09:10 Laboratory Results 08/16/18 17:45 08/20/18 04:45 08/19/18 08/20/18 08/21/18 05:59 05:59 05:59 Intake Total 1570.2 320 100 Output Total 300 675 200 Balance 1270.2 -355 -100 PT REJ 08/15/18 04:15 INR REJ 08/15/18 04:15 Physical Exam - Physical Exam General Appearance: WD/WN, alert, no apparent distress EENT: PERRL/EOMI Neck: non-tender, full range of motion, supple Respiratory: chest non-tender, lungs clear, normal breath sounds Cardiac/Chest: regular rate, rhythm Abdomen: normal bowel sounds, non-tender, soft Pelvic Exam: deferred Rectal: deferred Back: Normal inspection Skin: normal color, warm/dry Extremities: normal range of motion, non-tender, normal inspection Neuro/Psych: no motor/sensory deficits, alert Time Spent w/Patient (minutes): 25
--- NOTE | 2018-08-20 10:25 | HOSPPROG ---
Hospitalist Progress Note Assessment/Plan: # metabolic encephalopathy - non-pharm measures, correct underlying conditions as possible - RN reports minimal sleep, Ropinirole was ordered which patient refused( home medication), ordered seroquel on 08/19 to help with agitation which was effective with RN reporting a good night of sleep, will continue # hypoNa - SIADH per ULytes, but slow improvement with NS although patient refusing, Na 133 this AM - follow daily for now # underlying dementia - unclear how significant this is currently # skull fracture, intraparenchymal hemorrhages - non-op per neurosurgery - asa restarted # etOH use, no withdrawal Subjective: Patient reports no complaints this AM, RN reports good night of sleep Objective: Vital Signs Temp Pulse Resp BP Pulse Ox 36.8 C 67 18 124/75 H 95 08/20/18 07:38 08/20/18 07:38 08/20/18 07:38 08/20/18 07:38 08/20/18 09:10 Laboratory Results 08/16/18 17:45 08/20/18 04:45 08/19/18 08/20/18 08/21/18 05:59 05:59 05:59 Intake Total 1570.2 320 100 Output Total 300 675 200 Balance 1270.2 -355 -100 PT REJ 08/15/18 04:15 INR REJ 08/15/18 04:15 - Physical Exam Constitutional: chronically ill appearing Eyes: PERRL Ears, Nose, Mouth, Throat: moist mucous membranes Cardiovascular: regular rate and rhythym Respiratory: no respiratory distress Gastrointestinal: soft, non-tender abdomen Skin: normal color Musculoskeletal: full muscle strength Neurologic: No AAOx3 Psychiatric: poor insight, poor judgement, poor memory, No interacting appropriately ICD10 Worksheet Patient Problems: Problems Problem Status Onset Intraparenchymal hemorrhage of brain Acute Skull fracture Acute DVT (deep venous thrombosis) Acute
[2018-08-20] MEDS: QUEtiapine FUMARATE 25 MG TAB PO SCH (20:52)
[2018-08-20] MEDS: MELATONIN 3 MG TAB PO PRN (23:12)
[2018-08-21] MEDS: THIAMINE HCL 100 MG TAB PO SCH (08:42)
[2018-08-21] MEDS: ASPIRIN 325 MG TAB PO SCH (08:42)
[2018-08-21] MEDS: FAMOTIDINE 20 MG TAB PO SCH ×2 (08:42→20:49)
[2018-08-21] MEDS: FOLIC ACID 1 MG TAB PO SCH (08:43)
[2018-08-21] MEDS: MULTIVITAMINS 1 EACH TAB PO SCH (08:43)
[2018-08-21] MEDS: LEVOTHYROXINE 75 MCG TAB PO SCH (08:44)
[2018-08-21] MEDS: ACETAMINOPHEN 500 MG TAB PO SCH ×3 (08:44→20:49)
--- NOTE | 2018-08-21 10:43 | TRAUMAPN ---
Trauma Progress Note Assessment/Plan: PAD#1 08/15/2018 Assessment: No complaints except with right posterior/basilar/lateral skull palpation. Neurologic baseline (dementia) unclear but no focal findings this AM. Findings of air in Right carotid syphon confirmed with radiology. Plan: CTA neck/brain to evaluate right carotid syphon for injury. Roll belt due to impulsivity PAD#2 08/16/2018 Assessment: Patient agitated last PM and was sedated with a combination of Ativan/Haldol. Mucvh less responsive this morning at 5:30 AM but has improved as of 9:30 AM. Moves upper extremities spontaneously but not to command. Not moving lower extremities ether spontaneously or to command. No verbal response. CTA yesterday showed no vascular injury. TSH was normal. Plan: Expect medication related sedation to resolve. If it does not will re-assess and consider rescan. PAD#3 08/17/2018 Assessment: Patient was rescanned yesterday and no significant changes were noted. This am she is improved- opens eyes spontaneously and to voice, moves all extremities spontaneously but not to command. No longer agitated. Plan: will transfer out of ICU PAD#5 08/19/2018 Assessment: AFeb, VSS Not sleeping much but dramatically better. She is up walking in [place] on a regular basis. Very busy folding and refolding sheets/blanket as she walks around the bed. Answers to name but not oriented to place or time. Na coming up. She has baseline dementia compounded by hyponatremia ( resolving) and TBI. no focal neurologic findings Plan: inpatient rehab plans in progress. (awaiting insurance approval) PAD#6 08/20/2018 Assessment: Much clearer and alert this morning. Still A&O x 1 however. GCS 15. Slept well last night. Walked extensively yesterday. NA 133. Neurosurgery had suggested [facility] evaluation be delayed until recovery complete from this event so that an accurate evaluation can be obtained. Plan: Still awaiting insurance approval for inpatient rehab PAD#7 08/21/2018 Assessment: Slowly improving. More complex ( and correct) sentence structure. Still A&O x1. Na now normal Plan: Awaiting insurance approval for in patient rehab Subjective: no complaints Objective: Vital Signs Temp Pulse Resp BP Pulse Ox 36.8 C 70 18 130/82 H 90 L 08/20/18 07:38 08/20/18 23:01 08/20/18 07:38 08/21/18 03:05 08/20/18 23:01 Laboratory Results 08/16/18 17:45 08/21/18 06:05 08/20/18 08/21/18 08/22/18 05:59 05:59 05:59 Intake Total 320 735 Output Total 675 300 Balance -355 435 PT REJ 08/15/18 04:15 INR REJ 08/15/18 04:15 Physical Exam - Physical Exam General Appearance: WD/WN, alert, no apparent distress Neuro/Psych: no motor/sensory deficits, alert (A&O x1) Time Spent w/Patient (minutes): 15
--- NOTE | 2018-08-21 14:52 | ASMTCMCOM ---
CM Note CM Note Notes: Patient chart reviewed. Spoke with inpatient rehab liasion regarding decision on patient referral, they are declining patient at this time due to baseline cognitive issues. Spoke with patient's daughter Rosi regarding options available such as a SNF versus home with [facility] and hired extra help. The patient's is now fearful of the stairs and worried that home may not be safe. Patient's gait is steady but she is oriented only to self. Left message with her Benedicto to call that we may assist him with other plans for discharge. Plan: TBD Date Signed: 08/21/2018 02:51 PM Electronically Signed By:Roopa Craig RN
--- NOTE | 2018-08-21 15:34 | HOSPPROG ---
Hospitalist Progress Note Assessment/Plan: # metabolic encephalopathy - non-pharm measures, correct underlying conditions as possible - RN reports minimal sleep, Ropinirole was ordered which patient refused( home medication), ordered seroquel on 08/19 to help with agitation which was effective with RN reporting a good night of sleep, will continue # hypoNa - SIADH per ULytes, but slow improvement with NS although patient refusing, Na 137 this AM - follow daily for now # underlying dementia - unclear how significant this is currently # skull fracture, intraparenchymal hemorrhages - non-op per neurosurgery - asa restarted # etOH use, no withdrawal Subjective: Pt reports no complaints this AM Objective: Vital Signs Temp Pulse Resp BP Pulse Ox 36.6 C 88 18 128/70 H 91 L 08/21/18 08:00 08/21/18 08:00 08/21/18 08:00 08/21/18 08:00 08/21/18 08:00 Laboratory Results 08/16/18 17:45 08/21/18 06:05 08/20/18 08/21/18 08/22/18 05:59 05:59 05:59 Intake Total 320 735 Output Total 675 300 Balance -355 435 PT REJ 08/15/18 04:15 INR REJ 08/15/18 04:15 - Physical Exam Constitutional: chronically ill appearing Eyes: PERRL Ears, Nose, Mouth, Throat: moist mucous membranes Cardiovascular: regular rate and rhythym Respiratory: no respiratory distress Gastrointestinal: soft, non-tender abdomen Skin: warm Musculoskeletal: full muscle strength Neurologic: No AAOx3 Psychiatric: No interacting appropriately ICD10 Worksheet Patient Problems: Problems Problem Status Onset Intraparenchymal hemorrhage of brain Acute Skull fracture Acute DVT (deep venous thrombosis) Acute
--- NOTE | 2018-08-21 16:44 | ASMTCMCOM ---
CM Note CM Note Notes: Spoke with Benedicto who is unable to understand inpatient rehabs reversal in the decision to accept patient. I have reached out to rehab and asked that they reconsider patient as she is dramatically off from her baseline. Benedicto is to call [phone] in m to speak to CM regarding options for post acute care that may include HHC with supplemental 24 hour care versus a SNF stay. Plan: Follow up with family in am Date Signed: 08/21/2018 04:43 PM Electronically Signed By:Roopa Craig RN
[2018-08-21] MEDS: QUEtiapine FUMARATE 25 MG TAB PO SCH (20:49)
[2018-08-22] MEDS: ACETAMINOPHEN 500 MG TAB PO SCH ×2 (05:59→15:05)
[2018-08-22] MEDS: LEVOTHYROXINE 75 MCG TAB PO SCH ×2 (06:00→08:22)
[2018-08-22 08:07] VITALS: BP 154/87
[2018-08-22] MEDS: MULTIVITAMINS 1 EACH TAB PO SCH (08:22)
[2018-08-22] MEDS: FOLIC ACID 1 MG TAB PO SCH (08:22)
[2018-08-22] MEDS: ASPIRIN 325 MG TAB PO SCH (08:22)
[2018-08-22] MEDS: FAMOTIDINE 20 MG TAB PO SCH (08:22)
[2018-08-22] MEDS: THIAMINE HCL 100 MG TAB PO SCH (08:22)
--- NOTE | 2018-08-22 08:43 | TRAUMAPN ---
Trauma Progress Note Assessment/Plan: 73 Y F with uncharacterized baseline dementia, possibly Alzheimer's type, s/p fall down two flights of stairs, found unresponsive by , 911 called, full trauma activation. R basilar skull fracture, IPH. 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 Apparently patient was drinking tequila before fall , but not a daily EtOH user. Awaiting placement. Discussed with RN. Apparently she is not a candidate for our inpatient rehab. Per RN, patient slept well overnight for first time in at least several days. Neurosurgery signed off. Plans to see Dr. Rios's team for repeat head CT in 3 weeks for B subdural hygromas. CTA done for evaluation of air in R carotid syphon showed not vascular injury. Hyponatremia improved. Has been followed by PT/OT/ST. Outpatient consult with neurology recommended once more healed for further evaluation of dementia. S: sitting oob in chair calmly beginning to draw with new set of colored pencils and markers. with sitter. O: AandOx1, nad pupils equal R posterior neck ecchymosis, no swelling ctab rrr abd soft, nt ext no edema, nt Objective: Vital Signs Temp Pulse Resp BP Pulse Ox 36.8 C 81 16 154/87 H 91 L 08/22/18 08:00 08/22/18 08:00 08/22/18 08:00 08/22/18 08:00 08/22/18 08:00 Laboratory Results 08/16/18 17:45 08/21/18 06:05 08/21/18 08/22/18 08/23/18 05:59 05:59 05:59 Intake Total 735 1130 Output Total 300 Balance 435 1130 PT REJ 08/15/18 04:15 INR REJ 08/15/18 04:15 - C-Spine Clearance Cervical Spine Cleared: Yes Provider who Cleared Cervical Spine: Neurosurgery Time Cervical Spine was Cleared: 07:30
--- NOTE | 2018-08-22 09:25 | SOAPPROG ---
SOAP Progress Note Assessment/Plan: Assessment: SEEN TODAY WITH MY PA YANY CARVALHO. PLEASE REFER TO HER NOTE PATIENT IS UPPER ABOUT BUT STILL IN A FOG. SHE DOES RESPOND OCCASIONALLY TO QUESTIONS AND VERBAL STIMULI BUT IS COMPLETELY UNABLE TO FOLLOW SIMPLE INSTRUCTION SHE IS PROBABLY NOT A CANDIDATE FOR INPATIENT REHAB Plan: EVALUATION FOR PLACEMENT ISSUES WITH A [facility] OR [facility] OR HOME WITH FAMILY WITH ASSISTANCE 08/22/18 09:23 Objective: Vital Signs Temp Pulse Resp BP Pulse Ox 36.8 C 81 16 154/87 H 91 L 08/22/18 08:00 08/22/18 08:00 08/22/18 08:00 08/22/18 08:00 08/22/18 08:00 Laboratory Results 08/16/18 17:45 08/21/18 06:05 08/21/18 08/22/18 08/23/18 05:59 05:59 05:59 Intake Total 735 1130 Output Total 300 Balance 435 1130 PT REJ 08/15/18 04:15 INR REJ 08/15/18 04:15 ICD10 Worksheet Patient Problems: Problems Problem Status Onset Intraparenchymal hemorrhage of brain Acute Skull fracture Acute DVT (deep venous thrombosis) Acute
--- NOTE | 2018-08-22 09:59 | HOSPPROG ---
Hospitalist Progress Note Assessment/Plan: # metabolic encephalopathy - unsure how chronic this will become - cont seroquel HS # hypoNa - resolved # underlying dementia - unclear how significant this is currently # skull fracture, intraparenchymal hemorrhages - non-op per neurosurgery - asa restarted # etOH use, no withdrawal Subjective: sitting in chair; ambulated around halls Objective: Vital Signs Temp Pulse Resp BP Pulse Ox 36.8 C 81 16 154/87 H 91 L 08/22/18 08:00 08/22/18 08:00 08/22/18 08:00 08/22/18 08:00 08/22/18 08:00 Laboratory Results 08/16/18 17:45 08/21/18 06:05 08/21/18 08/22/18 08/23/18 05:59 05:59 05:59 Intake Total 735 1130 Output Total 300 Balance 435 1130 PT REJ 08/15/18 04:15 INR REJ 08/15/18 04:15 chart reviewed - Physical Exam Constitutional: no apparent distress Cardiovascular: regular rate and rhythym, no murmur, rub, or gallop Respiratory: no respiratory distress, no rales or rhonchi, clear to auscultation Gastrointestinal: soft, non-tender abdomen, no palpable masses, No guarding, No rebound, No distension ICD10 Worksheet Patient Problems: Problems Problem Status Onset DVT (deep venous thrombosis) Acute Intraparenchymal hemorrhage of brain Acute Skull fracture Acute
--- NOTE | 2018-08-22 16:08 | ASMTLACE ---
LACE Length of stay for Answers: 7-13 days current admission Acuity / Level of Answers: Yes Care: Did the patient have an inpatient admission? Comorbidities - select Answers: Dementia all that apply Other Notes: Hypothyroid # of Emergency department Answers: 1-2 visits in the last 6 months Score: 13 Date Signed: 08/22/2018 04:06 PM Electronically Signed By:ANGELIKA Kurtz
--- NOTE | 2018-08-22 16:13 | ASMTCMCOM ---
CM Note CM Note Notes: Spoke at length with pt Benedicto and dghtr Silvia, discussing all the d/c options. Family decline SNF placement. Family decides the best plan for d/c now is home with 24/hr supervision. Pt family will provide supervision with private pay care to fill in some gaps. Benedicto and Silvia want to see how pt does at home at least a couple of weeks and if pt does not improve Benedicto will research memory care/AL. [facility] can accept pt for DENTAL TECHNICIAN METAL/OT/PT. Orders to be obtained via [facility]. Pt to follow up outpatient with neurology. Family to transport home. Date Signed: 08/22/2018 04:12 PM Electronically Signed By:ANGELIKA Kurtz
--- NOTE | 2018-08-23 09:54 | ASDISCHSUM ---
Discharge Information Plan Status:Home with Home Health Medically Cleared to Leave: Discharge Date:08/22/2018 04:16 PM CM D/C Disposition: ADT D/C Disposition:Home, Routine, Self-Care Projected Discharge Date:08/22/2018 11:00 AM Transportation at D/C: Discharge Delay Reason: Follow-Up Date:08/22/2018 11:00 AM Discharge Slot: Final Diagnosis: Placement Information Referral Type:*Home Health Care Services Referral ID:[id number] Provider Name:[facility] Address 1:[address] [place] [address] Address 2: City:[place] Selection Factors: State:[place] Patient Contact Information Contact Name:AUGUSTIN Relationship: Address:[address] Work Phone: City:[place] Alternate Phone: State/Zip Code:[place] [address] Email: Financial Information Financial Class:Medicare Advantage Plans Primary Plan Desc:[employer] MED[employer]ARE ADV Primary Plan Number:[id number] Secondary Plan Desc: Secondary Plan Number: Assessment Information LACE LACE Length of stay for Answers: 7-13 days current admission Acuity / Level of Answers: Yes Care: Did the patient have an inpatient admission? Comorbidities - select Answers: Dementia all that apply Other Notes: Hypothyroid # of Emergency department Answers: 1-2 visits in the last 6 months Score: 13 Date Signed: 08/22/2018 04:06 PM Electronically Signed By:ANGELIKA Kurtz [facility] CM Progress Note CM Note CM Note Notes: Late Entry from last night and Updates from today: Pt presented to the ED last night as a FTA after she fell down a couple flights of stairs and was found unresponsive. Pt presented to the ED minimally responsive and w/AMS. Pt admitted for intraparenchymal hemorrhage and skull base fracture. Per pt's , Benedicto Onofre ([phone]), pt's PMH includes early stages of Alzheimers, hypothyroid, restless leg syndrome. Pt had reportedly been drinking a moderate amount of alcohol earlier in the afternoon prior to her fall. Benedicto was at home when the pt had the fall and he found her at the bottom of the stairs. CM spoke w/Benedicto extensively about the challenges they have been going through in regards to the pt's early Alzheimers. CM provided empathetic listening, emotional support, etc. Benedicto says he sees a therapist regularly and has gone to support groups in the past but going to the groups has been "terrifying" and potentially not helpful at this stage. Benedicto states that about a year or so ago the pt was seen by neurologist who used the term "demented" in front of and the pt was very upset and said she didn't want to see that Dr again. Benedicto states "she is very much in denial." Pt has not followed up with any other neurologist. Pt's PCP is listed as Dr Gt Garland at [facility] ([phone]). 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 Benedicto is a musician and assistant professor of music and states that music, singing, etc play a significant role in their family. Benedicto states their daughter, Marylu Antoine ([phone]), lives in [place]. Benedicto says they do not have any home care assistance but have been thinking about "when to start bringing people in" and is open to skilled and private duty homecare resources. DC NEEDS: Benedicto is aware pt may need to go to short term rehab at SNF or Inpt Rehab(?) before returning home. PT/OT evals ordered and still pending. MOLDING MACHINE OPERATOR reccs DC home. CM to follow. Also, Benedicto reported that the pt usually drinks a few glasses of wine every night but last night she drank tequila. CM to check in w/Benedicto and pt re:pt's ETOH use and possible need for resources, etc. Date Signed: 08/15/2018 01:54 PM Electronically Signed By:Jossy Fonseca RN [facility] CM Progress Note CM Note CM Note Notes: OT/PT/MOLDING MACHINE OPERATOR rec inpatient rehab. Spoke with pt dghtr Marylu and Benedicto, discussing d/c options. The pt and family want the [facility] inpatient rehab as d/c plan. Marylu obtained pt insurance care, a copy made and provided to [facility] inpatient rehab because the face sheet information was not correct. Pt currently is 1:1 and Nora with [facility] inpatient rehab admissions reports they can still accept pt if she needs sitter at d/c. D/c plan of care: [facility] inpatient rehab when medically stable and insurance approves Date Signed: 08/18/2018 09:50 AM Electronically Signed By:ANGELIKA Kurtz [facility] CM Progress Note CM Note CM Note Notes: Patient chart reviewed. Spoke with inpatient rehab liasion regarding decision on patient referral, they are declining patient at this time due to baseline cognitive issues. Spoke with patient's daughter Rosi regarding options available such as a SNF versus home with [facility] and hired extra help. The patient's is now fearful of the stairs and worried that home may not be safe. Patient's gait is steady but she is oriented only to self. Left message with her Benedicto to call that we may assist him with other plans for discharge. Plan: TBD Date Signed: 08/21/2018 02:51 PM Electronically Signed By:Roopa Craig RN [facility] Progress Note CM Note CM Note Notes: Spoke with Benedicto who is unable to understand inpatient rehabs reversal in the decision to accept patient. I have reached out to rehab and asked that they reconsider patient as she is dramatically off from her baseline. Benedicto is to call [phone] in to speak to CM regarding options for post acute care that may include HHC with supplemental 24 hour care versus a SNF stay. Plan: Follow up with family in am Date Signed: 08/21/2018 04:43 PM Electronically Signed By:Roopa Craig RN [facility] CM Progress Note CM Note CM Note Notes: Spoke at length with pt Benedicto and dghtr Silvia, discussing all the d/c options. Family decline SNF placement. Family decides the best plan for d/c now is home with 24/hr supervision. Pt family will provide supervision with private pay care to fill in some gaps. Benedicto and Silvia want to see how pt does at home at least a couple of weeks and if pt does not improve Benedicto will research memory care/AL. [facility] can accept pt for MOLDING MACHINE OPERATOR/OT/PT. Orders to be obtained via [employer]. Pt to follow up outpatient with neurology. Family to transport home. Date Signed: 08/22/2018 04:12 PM Electronically Signed By:ANGELIKA Kurtz Intervention Information
--- NOTE | 2018-08-23 11:52 | PDIAF ---
- Diagnosis Diagnosis: s/p fall c occipital skull fracture, IPH, dementia Code Status: Do Not Resuscitate - Medication Management Discharge Medications: electronically signed and located in the Home Medication List. PICC Care - Routine: N/A - Orders Services needed: Home Care, Physical Therapy, Occupational Therapy, Speech Language Pathologist Home Care Face to Face: I certify that this patient was under my care and that I had the required [id number] encounter meeting the encounter requirements on the discharge day. My findings support the fact that the patient is homebound as defined in Home Care Face to Face Continued: CMS Chapter 7 Medicare Benefits Manual 30.1.1 , The condition of the patient is such that there exists a normal inability to leave home and consequently, leaving home would require a considerable and taxing effort. Diet Recommendation: no restrictions on diet Diet Texture: Regular Texture Diet, Thin Liquids, Meds Whole w/Liquids Wound Care Instructions: n/a Activity/Weight Bearing Restrictions: ad jane Additional Instructions: Follow up with Dr. Rios in [address] with [address] CT[address] Please call our office to schedule. Please call with any new changes in motor exam, severe headaches, new cognition changes or vomiting. Neurology follow-up can be addressed to discern closed head injury vs dementia. You could opt to see [facility]. [phone]. They will have access to your [facility] hospital records. Also, follow up with the trauma surgeon is recommended as needed. - Follow Up Care Current Providers and Referrals: Shine Cardozo MD [Medical Doctor] - follow up in 1 week Judson Rios MD [Medical Doctor] - (3 weeks) Patient,NotPresent [Unknown] - As per Instructions
--- NOTE | 2018-09-05 15:36 | GDS ---
[f rep st] DISCHARGE SUMMARY DISCHARGE DIAGNOSES: 1. Traumatic fall down stairs. 2. Right occipital skull fracture. 3. Intraparenchymal hemorrhage. 4. Metabolic encephalopathy. 5. Hyponatremia. 6. Alcohol use. PROCEDURES: None. SPECIAL TESTS: Please see reports for head CT x3, cervical spine CT, chest x-ray, and head and neck CT angiogram. CONSULTATIONS: 1. Ferny Rios, Neurosurgery. 2. Flavio Love, Pulmonology, anthropologist physical. 3. Neftali Kent MD, hospitalist medicine. HOSPITAL COURSE: The patient is a 73-year-old female with some baseline dementia, which had been ___ characterized, who apparently was drinking a large amount of alcohol and fell down the stairs. Her found her down, and she was brought in to the emergency department as a trauma activati on. Imaging revealed an occipital skull fracture with an intraparenchymal hemorrhage. Please see re port for full findings. Neurosurgery was consulted, and she was admitted to the trauma service. Rep eat CT was done and showed some changes including a new small subdural hematoma. A 3rd head CT showe d no further changes. The patient was initially cared for in the ICU. She was then transferred to edical-surgical status. There was some question at one point of some air in her right carotid siphon , so a CT angiogram was done to rule out a vessel injury. This was negative. Ultimately, she appear ed to be at her baseline, which involved dementia. She was cleared for discharge for home with home health care, physical therapy, occupational therapy, and speech therapy. DISCHARGE INSTRUCTIONS: Again, patient was discharged in stable condition with PT, OT, and speech th eradot. Outpatient followup was planned with Dr. Rios in Neurosurgery in 3 weeks. It was recommend ed that they seek Neurology once she had more cleared from her injury for further evaluation of her d ementia. She was also instructed to follow up with us in the trauma service. /[id number]/MODL
== END 2018-08-22 16:16 | disposition home or self-care (01) | DRG 82 ==
LOC: EDUNIT# → F2N 20:07 → F3N 08-17 11:28
PROVIDERS: ADMIT Surgery; ATTEND Surgery
DX: S06.369A Traumatic hemorrhage of cerebrum, unspecified, with loss of consciousness of unspecified duration, initial encounter (principal); S02.91XA Unspecified fracture of skull, initial encounter for closed fracture; W10.9XXA Fall (on) (from) unspecified stairs and steps, initial encounter; Y92.018 Other place in single-family (private) house as the place of occurrence of the external cause; G93.41 Metabolic encephalopathy; E87.1 Hypo-osmolality and hyponatremia; G30.9 Alzheimer's disease, unspecified; F02.80 Dementia in other diseases classified elsewhere, unspecified severity, without behavioral disturbance, psychotic disturbance, mood disturbance, and anxiety; E03.9 Hypothyroidism, unspecified; G25.81 Restless legs syndrome; Z86.718 Personal history of other venous thrombosis and embolism; Z79.82 Long term (current) use of aspirin
CPT/HCPCS: 92507-GN; 92523-GN; 92610-GN; 96374; 97116-GP; 97163-GP; 97166-GO; 97530-GO; 97530-GP; 97535-GO; G0480; G0515-GO; J1630; J1953; J2060; J3411; L0174; Q9967